=== PATIENT | female | born 2000 | race Caucasian/White ===

== ENCOUNTER 2024-09-05 19:28 | Emergency (ER) | payer OTHER, SELFPAY ==
[2024-09-05 19:29] VITALS: BP 112/50; PULSE 99; RESP 16; TEMP 36.8; O2SAT 97; BMI 23.1
--- NOTE | 2024-09-05 20:35 | EDS_ITS ---
HPI HPI - URI History of Present Illness Chief Complaint: Sore Throat Informant: patient Onset/Context/Timing Onset: Days Context: Gradual Onset Timing: Continuous Quality: Sharp Location: Throat and neck Worsened by: Swallowing and - (Talking) Relieved by: - (Nothing) Associated Symptoms Associated Symptoms: Positive for Nasal Congestion, Headache, Nausea, Vomiting, Shortness of Breath, Hemoptysis (Blood-streaked sputum) and Productive Cough; Negative for Sinus Pressure, Diarrhea or Chest Pain Narrative Narrative: Patient presents with sore throat that has been getting worse over the past few days. Patient describes the pain as sharp. Patient states it is worse with swallowing and talking. Patient states that it is mainly over the anterior neck. Patient admits to subjective fever at home. Patient states nothing seems to help with it. Patient admits to some nausea and vomiting. Patient also admits to a cough. Patient admits to headache and nasal congestion. ROS ROS ED Constitutional Constitutional ED: Reports fever(s) and subjective; Denies chills Eyes Eyes: Denies blurry vision or change in vision ENT ENT ED: Reports rhinorrhea and sore throat Cardiovascular Cardiovascular: Denies chest pain or palpitations Respiratory/Chest Respiratory/Chest: Reports cough and dyspnea Gastrointestinal Gastrointestinal: Reports nausea and vomiting Genitourinary Genitourinary ED: Denies dysuria or hematuria Musculoskeletal Musculoskeletal: Reports back pain and neck pain Integumentary Denies abscess or rash Neurologic Neurologic: Reports headache(s); Denies weakness Allergic/Immunologic Allergic/Immunologic ED: Denies mouth swelling or urticaria PFSH PFSH Medical History Asthma Home Medications ?Medication ?Instructions ?Recorded ?Last Taken ?Type penicillin V potassium 500 mg 500 mg PO 4X/DAY #40 tab s 09/05/24 Unknown Rx tablet Allergy/AdvReac Type Severity Reaction Status Date / Time trazodone AdvReac Other Verified 09/05/24 19:30 Surgical History H/O neck surgery Social History Smoking Status: Current every day smoker tobacco type: e-cigarettes EXAM Physical Exam Const Vital Signs: 09/05/24 19:29 Temperature 98.3 F Temperature Source Oral Pulse Rate 99 Respiratory Rate 16 Blood Pressure 112/50 L Blood Pressure Mean 70 Pulse Ox 97 Positive well nourished and well developed General Appearance ED: well developed and NAD HEENT Reports moist mucous membranes normocephalic and atraumatic Throat: posterior oropharynx abnormal Positive for erythema and exudates Neck supple, no meningeal signs and no JVD General: lymphadenopathy anterior cervical Resp normal respiratory effort and clear to auscultation bilaterally Cardio Rate: regular rate Rhythm: regular rhythm Neuro oriented x3, CN's II-XII intact bilaterally and no sensory deficits noted Sensorium / Orientation: alert Motor Exam: strength 5/5 throughout Psych mental status grossly normal MDM MDM MDM Narrative Medical decision making narrative: Differential diagnosis includes strep pharyngitis and viral pharyngitis. Rapid strep will be obtained to assess for strep pharyngitis. Lab Data Attestation: I reviewed the patient's lab results. Lab results narrative: Rapid strep was reviewed and was positive. Treatment and Re-Evaluation Narrative: Nicotine cessation was discussed. Patient was ordered a dose of Tylenol but she refuses. Patient was given a dose of Pen-Vee K here. Patient was given a prescription for Pen-Vee K. Patient was instructed to take Tylenol or ibuprofen as needed for any pain or fevers. Patient was instructed to follow-up with her primary care physician in 5 to 7 days. Patient was instructed to return if worse in any way. Patient understood and was agreeable with the plan. All questions were answered. Discharge Plan Triage Chief Complaint: Sore Throat ED Provider: Shar Ring Dx/Rx/DC Orders Clinical Impression: Strep pharyngitis, Nicotine vapor product user Instructions: ED Pharyngitis, Strep (Confirmed) Prescriptions: New penicillin V potassium 500 mg tablet 500 mg PO 4X/DAY Qty: 40 0RF Primary Care Provider: Care Physician,No Primary Referrals: [facility] Doctor,Out of [Non-Staff] - 5-7 Days Print Language: Lithuanian Disposition Disposition: Home, Self Care
--- NOTE | 2024-09-05 22:01 | ED.RN ---
Pt refuses Tylenol, states I'm not paying the hospital for fucking Tylenol, I have it in my car. Pt states Tylenol and Ibuprofen not helping when she took them at home. This RN stated MD wasn't ordering narcotics at this time. Pt became angry, states I'm not a fucking druggie. Pt further demanding labs results, this RN stated as soon as results were available from lab, MD would be in to give her results. Pt pulls privacy screen between this RN and her. Pt continues to curse, stating how long does it take for a fucking strep test to come back?.
[2024-09-05] MEDS: Penicillin Vk 250 MG Tablet 500 MG PO (22:24)
== END 2024-09-05 22:33 | disposition home or self-care (01) ==
PROVIDERS: Emergency Provider Emergency Medicine; Visit Provider Emergency Medicine
DX: J02.0 Streptococcal pharyngitis (principal); F17.290 Nicotine dependence, other tobacco product, uncomplicated
CPT/HCPCS: 87651; 99282

== ENCOUNTER 2025-01-13 04:02 | Emergency (ER) | payer OTHER, SELFPAY ==
[2025-01-13 04:03] VITALS: BP 123/78; PULSE 90; RESP 18; TEMP 36.8; O2SAT 99; BMI 24.1
--- OUTSIDE RECORDS SUMMARY | 2025-01-13 04:39 | XMS RPT_ITS | CCD ---
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 Name Role Phone JOEL MAJANO Primary Care Unavailable Shar Ring Attending Unavailable Allergies Allergy Classification Reported Allergen(s) Allergy Type Date of Onset Reaction(s) Facility (1 source) traZODone Drug Allergy 09-05-2024 [facility] Repository Problems Problem Classification Problem Date Documented Da te Episodic/Chronic Other upper respiratory infections (1 source) Acute pharyngitis, unspecified; Translations: [Acute pharyngitis, unspecified] Onset: 09-20-2024 Episodic Results Test Name Value Interpretation Reference Range Facil ity Emergency Department Summary on 09-05-2024 Emergency Department Summary [facility] Medical Records Department [address] [place] [address] Emergency Department Summary 09/05/24 MR#: [id number] Acct: [id number] Name: SIMONA STILL Rep #: [id number] : 2000 23 From: Shar Ring DO PCP: BOYD FLETCHER Status:DEP ER Location: ED HPI HPI - URI History of Present Illness Chief Complaint: Sore Throat Informant: patient Onset/Context/Timing Onset: Days Context: Gradual Onset Timing: Continuous Quality: Sharp Location: Throat and neck Worsened by: Swallowing and - (Talking) Relieved by: - (Nothing) Associated Symptoms Associated Symptoms: Positive for Nasal Congestion, Headache, Nausea, Vomiting, Shortness of Breath, Hemoptysis (Blood-streaked sputum) and Productive Cough; Negative for Sinus Pressure, Diarrhea or Chest Pain Narrative Narrative: Patient presents with sore throat that has been getting worse over the past few days. Patient describes the pain as sharp. Patient states it is worse with swallowing and talking. Patient states that it is mainly over the anterior neck. Patient admits to subjective fever at home. Patient states nothing seems to help with it. Patient admits to some nausea and vomiting. Patient also admits to a cough. Patient admits to headache and nasal congestion. ROS ROS ED Constitutional Constitutional ED: Reports fever(s) and subjective; Denies chills Eyes Eyes: Denies blurry vision or change in vision ENT ENT ED: Reports rhinorrhea and sore throat Cardiovascular Cardiovascular: Denies chest pain or palpitations Respiratory/Chest Respiratory/Chest: Reports cough and dyspnea Gastrointestinal Gastrointestinal: Reports nausea and vomiting Genitourinary Genitourinary ED: Denies dysuria or hematuria Musculoskeletal Musculoskeletal: Reports back pain and neck pain Integumentary Denies abscess or rash Neurologic Neurologic: Reports headache(s); Denies weakness Allergic/Immunologic Allergic/Immunologic ED: Denies mouth swelling or urticaria [facility] Medical History Asthma Home Medications ???Medication ???Instructions ???Recorded ???Last Taken ???Type penicillin V potassium 500 mg 500 mg PO 4X/DAY #40 tabs 09/05/24 Unknown Rx tablet Allergy/AdvReac Type Severity Reaction Status Date / Time trazodone AdvReac Other Verified 09/05/24 19:30 Surgical History H/O neck surgery Social History Smoking Status: Current every day smoker tobacco type: e-cigarettes EXAM Physical Exam Const Vital Signs: 09/05/24 19:29 Temperature 98.3 F Temperature Source Oral Pulse Rate 99 Respiratory Rate 16 Blood Pressure 112/50 L Blood Pressure Mean 70 Pulse Ox 97 Positive well nourished and well developed General Appearance ED: well developed and NAD HEENT Reports moist mucous membranes normocephalic and atraumatic Throat: posterior oropharynx abnormal Positive for erythema and exudates Neck supple, no meningeal signs and no JVD General: lymphadenopathy anterior cervical Resp normal respiratory effort and clear to auscultation bilaterally Cardio Rate: regular rate Rhythm: regular rhythm Neuro oriented x3, CN's II-XII intact bilaterally and no sensory deficits noted Sensorium / Orientation: alert Motor Exam: strength 5/5 throughout Psych mental status grossly normal MDM MDM MDM Narrative Medical decision making narrative: Differential diagnosis includes strep pharyngitis and viral pharyngitis. Rapid strep will be obtained to assess for strep pharyngitis. Lab Data Attestation: I reviewed the patient's lab results. Lab results narrative: Rapid strep was reviewed and was positive. Treatment and Re-Evaluation Narrative: Nicotine cessation was discussed. Patient was ordered a dose of Tylenol but she refuses. Patient was given a dose of Pen-Vee K here. Patient was given a prescription for Pen-Vee K. Patient was instructed to take Tylenol or ibuprofen as needed for any pain or fevers. Patient was instructed to follow-up with her primary care physician in 5 to 7 days. Patient was instructed to return if worse in any way. Patient understood and was agreeable with the plan. All questions were answered. Discharge Plan Triage Chief Complaint: Sore Throat ED Provider: Shar Ring Dx/Rx/DC Orders Clinical Impression: Strep pharyngitis, Nicotine vapor product user Instructions: ED Pharyngitis, Strep (Confirmed) Prescriptions: New penicillin V potassium 500 mg tablet 500 mg PO 4X/DAY Qty: 40 0RF Primary Care Provider: Care Physician,Stefany Primary Referrals: [facility] Doctor,Out of [Non-Staff] - 5-7 Days Print Language: Eng (more content not included)... Normal [facility] M100.677on 09-05-2024 M100.677 Positive Normal [facility] Comment on above: Performed By: #### M 100.677 #### [facility] [address] [place], [address] Encounters Encounter Date Encounter Type Care Provider Facility Start: 09-05-2024 End: 09-05-2024 Emergency department patient visit JOEL MAJANO Facility:[facility] Payers Date Payer Category Payer Self-pay 2024 Unknown [id number] Unknown [id number] Summary Purpose Family History No Family History Records Found Advance Directives No Advanced Directives Records Found Additional Source Comments INFORMATION SOURCE (unrecogn ized section and content) DATE CREATED AUTHOR 09/22/2024 [facility] FOR RECORDS PERTAINING TO PATIENTS WHO ARE OR HAVE BEEN ENROLLED IN A CHEMICAL DEPENDENCY/SUBSTANCEABUSE PROGRAM, SOME INFORMATION MAY BE OMITTED. This clinical summary was aggregated from multiple sources. Caution should be exercised in using it in the provision of clinical care. This summary normalizes information from multiple sources, and as a consequence, information in this document may materially change the coding, format and clinical context of patient data. In addition, data may be omitted in some cases. CLINICAL DECISIONS SHOULD BE BASED ON THE PRIMARY CLINICAL RECORDS. [employer] [facility]. provides no warranty or guarantee of the accuracy or completeness of information in this document.
--- NOTE | 2025-01-13 04:46 | EDS_ITS ---
HPI History of Present Illness Chief Complaint: Complaint Narrative Narrative: Patient is a 24-year-old female with past medical history of asthma who presented to the emergency department the chief complaint of urinating blood. She states that she went to the bathroom and notes that when she looked in the toilet there was a significant mount of blood she had some abdominal discomfort associated with this therefore she came here for further evaluation management. Patient notes that she is currently on a antibiotic for a tooth infection. Patient notes that there is a possibility of as she does not use condoms and she is not on control but she states that she feels that this is a low chance but still possibility. [facility] Medical History Asthma Home Medications ?Medication ?Instructions ?Recorded ?Last Taken ?Type phenazopyridine 100 mg tablet 100 mg PO DAILY 01/13/25 Unknown History Allergy/AdvReac Type Severity Reaction Status Date / Time trazodone AdvReac Other Verified 01/13/25 04:03 Surgical History H/O neck surgery Social History Smoking Status: Current every day smoker tobacco type: e-cigarettes ROS ROS ED ROS Narrative Constitutional: Denies any fevers, chills, headaches Eyes: Denies change in vision double vision blurry vision Cardiovascular: Denies chest pain Abdomen: Complains of lower abdominal pain denies any nausea vomit diarrhea : Complains of blood in her urine as noted above Neurological: Denies any numbness, aches, tingling Skin: Denies any rashes or lesions EXAM Physical Exam Narrative Exam Narrative: General: Patient lying in bed rest comfortably did not appear to be acute distress Head: Atraumatic, normocephalic Eyes: PERRL bilaterally, EOMI blood, no conjunctival injection noted Neck: Soft, supple, trachea midline Cardiovascular: Regular rate and rhythm Respiratory: Clear to auscultation bilaterally Abdomen: Soft, nondistended, mild tenderness palpation in the suprapubic region no rebound or guarding on exam Extremities: +5/5 strength noted in the bilateral upper and lower extremities Neurological: Patient follow commands knew that she was at [facility] year is 2024 Skin: Warm, dry, intact no rashes lesions noted Const Vital Signs: 01/13/25 04:03 01/13/25 06:00 Temperature 98.2 F Temperature Source Oral Pulse Rate 90 64 Respiratory Rate 18 16 Blood Pressure 123/78 H 105/63 Blood Pressure Mean 93 77 Pulse Ox 99 100 Oxygen Delivery Method Room Air Room Air MDM MDM MDM Narrative Medical decision making narrative: Patient is a 24-year-old female who presents to the emergency department chief complaint of hematuria. On the differential diagnosis includes but not limited to UTI, ectopic , threatened miscarriage, missed . Once workup is obtained reviewed she will be reevaluated. Patient CBC reviewed and showed no evidence of cytosis white blood count 8.1, hemoglobin 13.9, plate count 235. Patient sodium normal 139, potassium normal 3.8, creatinine was 0.55. Patient AST and ALT were 16 and less than 5 respectively. Patient lipase was 24, test was negative. Patient's urinalysis showed 250 occult blood negative nitrates 25 leukocyte esterase 0-5 white cells with 2+ bacteria she does not have any urinary symptoms at this point time we will send this for culture. I discussed the results with the patient she is feeling better she like to go home at this point in time. Patient was advised to follow-up and urine culture and follow-up with her doctor in the outpatient setting. She is advised to return with worsening symptoms or any concerns or the nearest ER as she travels for her job. She is agreeable with this plan all question concerns answered she was discharged home in stable condition. Lab Data Labs: Laboratory Results - last 24 hr 01/13/25 01/13/25 04:58 05:39 WBC 8.1 RBC 4.50 Hgb 13.9 Hct 41.0 MCV 91.1 MCH 30.9 MCHC 33.9 RDW Std Deviation 41.1 RDW Coeff of Rachelle 12.3 Plt Count 235 MPV 9.7 Immature Gran % (Auto) 0.200 Neut % (Auto) 65.6 Lymph % (Auto) 27.0 [place] % (Auto) 5.8 Eos % (Auto) 0.9 Baso % (Auto) 0.5 Absolute Neuts (auto) 5.3 Absolute Lymphs (auto) 2.19 Nucleated RBC % 0 Sodium 139 Potassium 3.8 Chloride 107 Carbon Dioxide 21.8 Anion Gap 10 BUN 12 Creatinine 0.55 L Estim Creat Clear Calc 115.24 Est GFR (MDRD) Non-Af 133 BUN/Creatinine Ratio 21.2 H Glucose 107 H Calcium 8.8 Total Bilirubin 0.70 AST 16 ALT < 5 Alkaline Phosphatase 50 Total Protein 6.7 Albumin 4.2 Globulin 2.5 Albumin/Globulin Ratio 1.7 Lipase 24 Serum , Qual NEGATIVE Urine Color Yellow Urine Clarity Clear Urine pH 6.0 Ur Specific [place] 1.025 Urine Protein 15 H Urine Glucose (UA) Normal Urine Ketones 15 H Urine Occult Blood 250 H Urine Nitrite Negative Urine Bilirubin Negative Urine Urobilinogen Normal Ur Leukocyte Esterase 25 H Urine RBC 0-5 SEEN Urine WBC 0-5 SEEN Ur Squamous Epith Cells 0-5 SEEN Ur Transition Epith Cell 0-5 SEEN Urine Bacteria 2+ Urine Mucus 2+ Discharge Plan Triage Chief Complaint: Complaint ED Provider: Carl Diop Dx/Rx/DC Orders Clinical Impression: Hematuria, Abdominal pain Prescriptions: No Action phenazopyridine 100 mg tablet 100 mg PO DAILY Primary Care Provider: Care Physician,No Primary Referrals: Care Physician,No Primary [Primary Care Provider] - Activity Restrictions/Additional Instructions: Follow-up on the urine culture to see if you need antibiotics for your urine or not for urinary tract infection. [facility] Return with worsening symptoms or other concerns or if you are not in the area and you have worsening symptoms go to the closest ER. Print Language: Turkish Disposition Disposition: Home, Self Care
[2025-01-13] MEDS: 0.9% Normal Saline (1000mL) 1,000 ML 999 ML IV (05:00)
[2025-01-13 05:09] LABS: Hematocrit 41.0 % (37-47); Hemoglobin 13.9 g/dL (12.0-15.0); Immature Granulocytes Count 0.020 X10^3/uL (0.0-0.0); Mean Corp Hgb Conc 33.9 g/dL (32-36); Mean Corpuscular Volume 91.1 fL (81-99); Mean Platelet Vol. 9.7 fl (6.2-12.0); NRBC Flagged by Analyzer 0 % (0-5); Platelet Count 235 K/mm3 (150-450); RBC Distribution Width CV 12.3 % (11.6-14.6); RBC Distribution Width SD 41.1 fl (35.1-43.9); Red Blood Count 4.50 M/mm3 (4.2-5.4); White Blood Count 8.1 K/mm3 (4.4-11.0)
[2025-01-13 05:25] LABS: Internal QC Validated? YES +Cl - CLEAR BKGD; Pregnancy, Serum, hCG Quali. NEGATIVE Negative; Record Kit Lot#, Serum Preg. 0000947241
[2025-01-13 05:47] LABS: Color, Urine Yellow (Yellow); Glucose, Dipstick Normal (Normal); Ketone-Dipstick 15 mg/dl (Negative); Leukocyte Esterase-Dipstick 25 /ul (Negative); Nitrite-Dipstick Negative (Negative); Occult Blood-Urine 250 /ul (Negative); Protein-Dipstick 15 mg/dl (Negative); Specific Gravity, Urine 1.025 (1.002-1.030); Urine Bilirubin Dipstick Negative (Negative)
[2025-01-13 06:00] VITALS: BP 105/63; PULSE 64; RESP 16; O2SAT 100
[2025-01-13 06:02] LABS: AST(SGOT) 16 U/L (<=31); Alanine Aminotransfer ALT/SGPT < 5 U/L (<=34); Albumin, Serum 4.2 g/dL (3.5-5.0); Alkaline Phosphatase 50 U/L (35-104); Anion Gap 10 (5-15); BUN 12 mg/dL (4-19); BUN/Creat Ratio 21.2 RATIO (10-20); Calcium,Total 8.8 mg/dL (7.6-11.0); Carbon Dioxide 21.8 mmol/L (21.0-32.0); Chloride 107 mmol/L (98-108); Estimated Creatinine Clearance 115.24 ml/min (50-250); Globulin 2.5 g/dL (2.2-4.2); Glucose 107 mg/dL (70-99); Lipase 24 U/L (13-75); Potassium 3.8 mmol/L (3.3-5.1)
[2025-01-13 06:09] LABS: Mucous, Urine 2+ /hpf (<or=2+); Red Blood Cells-Urine 0-5 SEEN /hpf (0-5); Squamous Epithelial Cells - UA 0-5 SEEN /hpf (5-10); Transitional Epithelial - Ur 0-5 SEEN /hpf (0-5)
[2025-01-13 06:34] VITALS: BP 101/70; PULSE 65; RESP 18; TEMP 36.8; O2SAT 98
== END 2025-01-13 06:38 | disposition home or self-care (01) ==
PROVIDERS: Emergency Provider Emergency Medicine; Visit Provider Emergency Medicine
DX: R10.30 Lower abdominal pain, unspecified (principal); R31.9 Hematuria, unspecified; J45.909 Unspecified asthma, uncomplicated; K04.7 Periapical abscess without sinus; F17.290 Nicotine dependence, other tobacco product, uncomplicated
CPT/HCPCS: 80053; 81001; 83690; 84703; 85025; 87086; 96360; 99283; A4216

== ENCOUNTER 2025-02-03 19:08 | Emergency (ER) | payer OTHER, SELFPAY ==
[2025-02-03 19:10] VITALS: BP 101/82; PULSE 88; RESP 18; TEMP 36.7; O2SAT 98; BMI 22.8
--- NOTE | 2025-02-03 19:28 | EDS_ITS ---
HPI <GRACIA Cardenas - Last Filed: 02/03/25 21:24> History of Present Illness Chief Complaint: Abscess Narrative Narrative: Patient presenting today due to concerns for a left labial abscess that she discovered today while in the shower. She did try to express this herself and squeezed the abscess causing it to pop, she did have purulent discharge expelled from the area. She reports that she was recently tested for STDs and does not have further STD concerns. She denies any fevers, chills, nausea, or vomiting. PFSH <GRACIA Cardenas - Last Filed: 02/03/25 21:24> [facility] Medical History Asthma Home Medications ?Medication ?Instructions ?Recorded ?Last Taken ?Type phenazopyridine 100 mg tablet 100 mg PO DAILY 01/13/25 Unknown History Allergy/AdvReac Type Severity Reaction Status Date / Time trazodone AdvReac Other Verified 02/03/25 19:13 Surgical History H/O neck surgery Social History Smoking Status: Current every day smoker tobacco type: e-cigarettes ROS <GRACIA Cardenas - Last Filed: 02/03/25 21:24> ROS ED Constitutional Constitutional ED: Denies chills or fever(s) Cardiovascular Cardiovascular: Denies chest pain Respiratory/Chest Respiratory/Chest: Denies dyspnea Gastrointestinal Gastrointestinal: Denies abdominal pain, nausea or vomiting Genitourinary Genitourinary ED: Denies dysuria, hematuria or urinary frequency Musculoskeletal Musculoskeletal: Denies arthralgias or myalgias Integumentary Reports abscess Neurologic Neurologic: Denies weakness EXAM <GRACIA Cardenas Last Filed: 02/03/25 21:24> Physical Exam Const Vital Signs: 02/03/25 19:10 02/03/25 20:24 Temperature 98.0 F 98 F Temperature Source Temporal Pulse Rate 88 71 Respiratory Rate 18 14 Blood Pressure 101/82 H 112/84 H Blood Pressure Mean 88 93 Pulse Ox 98 97 Oxygen Delivery Method Room Air Positive well nourished, well developed and no apparent distress General Appearance ED: well developed HEENT Reports normocephalic and head/scalp atraumatic Mouth ED: Yes moist mucous membranes normal Eyes PERRL and EOMs intact bilaterally Neck full ROM and supple Chest Wall inspection of chest normal Resp normal respiratory effort and clear to auscultation bilaterally Cardio regular rate and regular rhythm GI soft to palpation, non-tender, non-distended and no masses Narrative: Small fluctuant abscess to the left side of the vaginal opening, no surrounding erythema, warmth, or active purulence from the area. Back/Spine normal ROM and normal to inspection Extremity normal to inspection and full ROM Neuro oriented x3, CN's II-XII intact bilaterally, moves all extremities, no focal motor deficits and no sensory deficits noted Sensorium / Orientation: awake and alert Psych mental status grossly normal and thought process normal Skin no rashes or lesions noted and no wounds <Dr. Alejandro Donis MD - Last Filed: 02/05/25 22:48> Physical Exam Const Vital Signs: 02/03/25 19:10 02/03/25 20:24 Temperature 98.0 F 98 F Temperature Source Temporal Pulse Rate 88 71 Respiratory Rate 18 14 Blood Pressure 101/82 H 112/84 H Blood Pressure Mean 88 93 Pulse Ox 98 97 Oxygen Delivery Method Room Air MDM <GRACIA Cardenas - Last Filed: 02/03/25 21:24> [facility] MDM Narrative Medical decision making narrative: Patient presenting today with a small abscess to the inferior and left side of the vaginal opening, she pushed on the area while in the shower and pus came out of it. She denies any STD concerns. 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 There is no surrounding cellulitis. She has a small fluctuant abscess to the area and she is agreeable to I&D this. It was cleaned with iodine and anesthetized with 1% lidocaine, a small incision was made with a #11 blade and a small amount of blood was expelled. Recommended warm compresses to the area, at this time I do not feel she needs antibiotics. Wound care instructions were discussed with her as well as return instructions. Patient discharged home in stable condition. I have personally performed a face to face assessment of the patient and have reviewed the GIGI Note. I performed a substantive portion of the visit including all aspects of the following. My mayes findings include: History is patient presents because of pain and swelling inferior and to the left of the vaginal opening. She states she pushed on it forcefully and pus and blood came out. She has no history of STI. She denies fever, chills night sweats. She denies a traumatic fever or heart murmur.] Exam is for fluctuance consistent with an abscess subcutaneous tissue on the left perineal region. There is no evidence of cellulitis. There is no tabatha lymphadenopathy. There are no lesions noted on the labia. Medical Decision Making patient has an abscess which required drainage. The abscess was drained by the physician field research assistantFelicita. Other additions or changes: [None] <Dr. Alejandro Donis MD - Last Filed: 02/05/25 22:48> [facility] MDM Narrative Medical decision making narrative: I have personally performed a face to face assessment of the patient and have reviewed the GIGI Note. I performed a substantive portion of the visit including all aspects of the following. My mayes findings include: History is patient presents because of pain and swelling inferior and to the left of the vaginal opening. She states she pushed on it forcefully and pus and blood came out. She has no history of STI. She denies fever, chills night sweats. She denies a traumatic fever or heart murmur.] Exam is for fluctuance consistent with an abscess subcutaneous tissue on the left perineal region. There is no evidence of cellulitis. There is no tabatha ly mphadenopathy. There are no lesions noted on the labia. Medical Decision Making patient has an abscess which required drainage. The abscess was drained by the physician field research assistantFelicita. Other additions or changes: [None] Discharge Plan Triage Chief Complaint: Abscess ED Midlevel Provider: Brittany Hernandez ED Provider: Alejandro Donis Dx/Rx/DC Orders Clinical Impression: Abscess of left genital labia Instructions: ED Abscess Incision And Drainage Prescriptions: No Action phenazopyridine 100 mg tablet 100 mg PO DAILY Primary Care Provider: BOYD FLETCHER Referrals: Care Physician,No Primary [Non-Staff] - Activity Restrictions/Additional Instructions: Please return for any other concerns, worsening symptoms, fevers, chills. Try to keep the area clean and dry. Print Language: Upper Sorbian Disposition Disposition: Home, Self Care Discharge Date/Time: 02/03/25 20:29
--- OUTSIDE RECORDS SUMMARY | 2025-02-03 19:38 | XMS RPT_ITS | CCD ---
Author Organization [facility] Care Team Providers Care Physical Design Engineer Name Role Phone Care Physician, No Primary Primary Care Provider Unavailable Dr. Carl Diop DO Emergency Provider [phone] [place] Attending Unavailable AGUSTINA GONZALES Primary Care Unavailable Carl Diop Attending Unavailable Care Physician, No Primary Primary Care Unava ilable Allergies Allergy Classification Reported Allergen(s) Allergy Type Date of Onset Reaction(s) Facility (1 source) traZODone Drug Allergy 5 Other [facility] Comment on above: HALLUCINATIONS (1 source) traZODone Drug Allergy 5 [facility] Repository Medications Current Medications Medication Drug Class(es) Dates Sig (Normalized) Sig (Original) phenazopyridine hydrochloride 100 mg oral tablet (1 source) Start: 01-13-2025 take 1 tablet by mouth once daily Phenazopyridine 100 mg tablet Active 100 mg PO DAILY January 13, 2025 12:00am Completed/Discontinued Medications Medication Drug Class(es) Dates Sig (Normalized) Sig (Original) penicillin v potassium 500 mg oral tablet (1 source) Start: 09-05-2024 End: 01-13-2025 take 1 tablet by mouth four times daily Penicillin V Potassium 500 mg tablet Discontinued 500 mg PO 4 TIMES DAILY 40 0 September 05, 2024 1:00am January 13, 2025 6:26am Problems Active Problems Problem Classification Problem Date Documented Da te Episodic/Chronic Abdominal pain (2 sources) Abdominal pain; Translations: [Unspecified abdominal pain] Onset: 01-19-2025 01-13-2025 Episodic Genitourinary symptoms and ill-defined conditions (1 source) Blood in urine; Translations: [Hematuria, unspecified] 01-13-2025 Episodic Residual codes; unclassified (1 source) Nicotine-filled electronic cigarette user; Translations: [Tobacco use] 09-05-2024 Episodic Past or Other Problems Problem Classification Problem Date Documented Date Episodic/Chronic Other upper respiratory infections (2 sources) Streptococcal sore throat; Translations: [Streptococcal pharyngitis] Onset: 09-20-2024 09-13-2024 Episodic Results Test Name Value Interpretation Reference Range Facility Urine Cultureon 01-14-2025 URC Culture exhibits no growth. Normal [facility] Comment on above: Performed By: #### M 100.2200 #### [facility] [address] [place], [address] Absolute lymphocyte countOrd ered By: Carlnehemiah Diop on 01-13-2025 Lymphocytes Auto (Unsp spec) [#/Vol] 2.19 10*3/uL 0.83-4.51 [facility] Absolute neutrophil countOrd ered By: Carlnehemiah Diop on 01-13-2025 Neutrophils (Bld) [#/Vol] 5.3 10*3/uL 2.0-7.7 [facility] Anion gap in Serum or Plasma Ordered By: Carl Diop on 01-13-2025 Anion gap [Moles/Vol] 10 mmol/L 5-15 [facility] Automated lymphocyte count a s percentage of total leukocytesOrdered By: Carl Diop on 01-13-2025 Lymphocytes/100 WBC Auto (Unsp spec) 27.0 % 19-41 [facility] BUN/creatinine ratioOrdered By: Carl Diop on 01-13-2025 Urea nitrogen/Creatinine [Mass ratio] 21.2 mg/mg High 10-20 [facility] Basophil percentageOrdered B y: Carl Diop on 01-13-2025 Basophils/100 WBC (Bld) 0.5 % 0-1 [facility] Bilirubin Test strip Ql (U)O rdered By: Carl Diop on 01-13-2025 Bilirubin Ql (U) Negative Negative [facility] Bilirubin, totalOrdered By: Carl Diop on 01-13-2025 Bilirubin [Mass/Vol] 0.70 mg/dL 0.00-1.30 [facility] CBC W/Diff, Automatedon 01-02 Absolute Lymph 2.19 X10 3/uL Normal 0.83-4.51 [facility] Comment on above: Performed By: #### L 700.6800, L501.2450, L500.4050, L100.0100 #### [facility] [address] [place], [address] Absolute Neut 5.3 X10 3/uL Normal 2.0-7.7 [facility] Comment on above: Performed By: #### L 700.6800, L501.2450, L500.4050, L100.0100 #### [facility] [address] [place], [address] Basophils/100 WBC (Bld) 0.5 % Normal 0-1 [facility] Comment on above: Performed By: #### L 700.6800, L501.2450, L500.4050, L100.0100 #### [facility] [address] [place], [address] Eosinophils/100 WBC (Bld) 0.9 % Normal 0-5 [facility] Comment on above: Performed By: #### L 700.6800, L501.2450, L500.4050, L100.0100 #### [facility] [address] [place], [address] Erythrocyte distribution width (RBC) [Ratio] 12.3 % Normal 11.6-14.6 [facility] Comment on above: Performed By: #### L 700.6800, L501.2450, L500.4050, L100.0100 #### [facility] [address] [place], [address] Hematocrit (Bld) [Volume fraction] 41.0 % Normal 37-47 [facility] Comment on above: Performed By: #### L 700.6800, L501.2450, L500.4050, L100.0100 #### [facility] [address] [place], [address] Hemoglobin (Bld) [Mass/Vol] 13.9 g/dL Normal 12.0-15.0 [facility] Comment on above: Performed By: #### L 700.6800, L501.2450, L500.4050, L100.0100 #### [facility] [address] [place], [address] IG% 0.200 Normal 0.0-0.9 [facility] Comment on above: Result Comment: IG% - Immature Granulocytes (promyelocytes, myelocytes and metamyelocytes) > 1% indicates that a LEFT SHIFT is Present. Performed By: #### L 700.6800, L501.2450, L500.4050, L100.0100 #### [facility] [address] [place], [address] Lymphocytes/100 WBC (Bld) 27.0 % Normal 19-41 [facility] Comment on above: Performed By: #### L 700.6800, L501.2450, L500.4050, L100.0100 #### [facility] [address] [place], [address] MCH (RBC) [Entitic mass] 30.9 pg Normal 27.0-32.0 [facility] Comment on above: Performed By: #### L 700.6800, L501.2450, L500.4050, L100.0100 #### [facility] [address] [place], [address] MCHC (RBC) [Mass/Vol] 33.9 g/dL Normal 32-36 [facility] Comment on above: Performed By: #### L 700.6800, L501.2450, L500.4050, L100.0100 #### [facility] [address] [place], [address] MCV (RBC) [Entitic vol] 91.1 fL Normal 81-99 [facility] Comment on above: Performed By: #### L 700.6800, L501.2450, L500.4050, L100.0100 #### [facility] [address] [place], [address] Monocytes/100 WBC (Bld) 5.8 % Normal 0-10 [facility] Comment on above: Performed By: #### L 700.6800, L501.2450, L500.4050, L100.0100 #### [facility] [address] [place], [address] Neutrophils/100 WBC (Bld) 65.6 % Normal 47-70 [facility] Comment on above: Performed By: #### L 700.6800, L501.2450, L500.4050, L100.0100 #### [facility] [address] [place], [address] Nucleated RBC (Bld) [#/Vol] 0 10*3/uL Normal 0-5 [facility] Comment on above: Performed By: #### L 700.6800, L501.2450, L500.4050, L100.0100 #### [facility] [address] [place], [address] Platelet mean volume (Bld) [Entitic vol] 9.7 fL Normal 6.2-12.0 [facility] Comment on above: Performed By: #### L 700.6800, L501.2450, L500.4050, L100.0100 #### [facility] [address] [place], [address] Platelets (Bld) [#/Vol] 235 10*3/uL Normal 150-450 [facility] Comment on above: Performed By: #### L 700.6800, L501.2450, L500.4050, L100.0100 #### [facility] [address] [place], [address] RBC (Bld) [#/Vol] 4.50 10*6/uL Normal 4.2-5.4 [facility] Comment on above: Performed By: #### L 700.6800, L501.2450, L500.4050, L100.0100 #### [facility] [address] [place], [address] RDW SD 41.1 fl Normal 35.1-43.9 [facility] Comment on above: Performed By: #### L 700.6800, L501.2450, L500.4050, L100.0100 #### [facility] [address] [place], [address] WBC (Bld) [#/Vol] 8.1 10*3/uL Normal 4.4-11.0 [facility] Comment on above: Performed By: #### L 700.6800, L501.2450, L500.4050, L100.0100 #### [facility] [address] [place], [address] Carbon dioxide, total [Moles /volume] in Central venous bloodOrdered By: Carl Diop on 01-13-2025 CO2 [Moles/Vol] 21.8 mmol/L 21.0-32.0 [facility] Chloride assayOrdered By: Vern Diop on 01-13-2025 Chloride [Moles/Vol] 107 mmol/L 98-108 [facility] Comprehensive Metabolic Prof ilon 01-13-2025 Albumin [Mass/Vol] 4.2 g/dL Normal 3.5-5.0 [facility] Comment on above: Performed By: #### L 700.6800, L501.2450, L500.4050, L100.0100 #### [facility] [address] [place], [address] Albumin/Globulin [Mass ratio] 1.7 {ratio} Normal 0.9-2.4 [facility] Comment on above: Performed By: #### L 700.6800, L501.2450, L500.4050, L100.0100 #### [facility] [address] [place], [address] ALK PHOS 50 U/L Normal 35-104 [facility] Comment on above: Performed By: #### L 700.6800, L501.2450, L500.4050, L100.0100 #### [facility] [address] [place], [address] ALT [Catalytic activity/Vol] U/L Normal <=34 [facility] Comment on above: Performed By: #### L 700.6800, L501.2450, L500.4050, L100.0100 #### [facility] [address] [place], [address] AST [Catalytic activity/Vol] 16 U/L Normal <=31 [facility] Comment on above: Performed By: #### L 700.6800, L501.2450, L500.4050, L100.0100 #### [facility] [address] [place], [address] Bilirubin [Mass/Vol] 0.70 mg/dL Normal 0.00-1.30 [facility] Comment on above: Performed By: #### L 700.6800, L501.2450, L500.4050, L100.0100 #### [facility] [address] [place], [address] BUN/CRE 21.2 RATIO High 10-20 [facility] Comment on above: Performed By: #### L 700.6800, L501.2450, L500.4050, L100.0100 #### [facility] [address] [place], [address] Calcium [Mass/Vol] 8.8 mg/dL Normal 7.6-11.0 [facility] Comment on above: Performed By: #### L 700.6800, L501.2450, L500.4050, L100.0100 #### [facility] [address] [place], [address] Chloride [Moles/Vol] 107 mmol/L Normal 98-108 [facility] Comment on above: Performed By: #### L 700.6800, L501.2450, L500.4050, L100.0100 #### [facility] [address] [place], [address] CO2 [Moles/Vol] 21.8 mmol/L Normal 21.0-32.0 [facility] Comment on above: Performed By: #### L 700.6800, L501.2450, L500.4050, L100.0100 #### [facility] [address] [place], [address] Creatinine [Mass/Vol] 0.55 mg/dL Low 0.70-1.20 [facility] Comment on above: Performed By: #### L 700.6800, L501.2450, L500.4050, L100.0100 #### [facility] [address] [place], [address] ECRCL 115.24 ml/min Normal 50-250 [facility] Comment on above: Performed By: #### L 700.6800, L501.2450, L500.4050, L100.0100 #### [facility] [address] [place], [address] GAP 10 Normal 5-15 [facility] Comment on above: Performed By: #### L 700.6800, L501.2450, L500.4050, L100.0100 #### [facility] [address] [place], [address] GFR/1.73 sq M.predicted among non-blacks MDRD (S/P/Bld) [Vol rate/Area] 133 mL/min/{1.73_m2} Normal >60 [facility] Comment on above: Result Comment: mL/m in/1.73m2 CKD-EPI Creatinine Equation (2020) Performed By: #### L 700.6800, L501.2450, L500.4050, L100.0100 #### [facility] [address] [place], [address] Globulin (S) [Mass/Vol] 2.5 g/dL Normal 2.2-4.2 [facility] Comment on above: Performed By: #### L 700.6800, L501.2450, L500.4050, L100.0100 #### [facility] [address] [place], [address] Glucose [Mass/Vol] 107 mg/dL High 70-99 [facility] Comment on above: Performed By: #### L 700.6800, L501.2450, L500.4050, L100.0100 #### [facility] [address] [place], [address] Potassium [Moles/Vol] 3.8 mmol/L Normal 3.3-5.1 [facility] Comment on above: Result Comment: Hemo lysis present, Results??could be affected. ?? Performed By: #### L 700.6800, L501.2450, L500.4050, L100.0100 #### [facility] [address] [place], [address] Sodium [Moles/Vol] 139 mmol/L Normal 133-145 [facility] Comment on above: Performed By: #### L 700.6800, L501.2450, L500.4050, L100.0100 #### [facility] [address] [place], [address] T PROT 6.7 g/dL Normal 5.9-8.4 [facility] Comment on above: Performed By: #### L 700.6800, L501.2450, L500.4050, L100.0100 #### [facility] [address] [place], [address] Urea nitrogen [Mass/Vol] 12 mg/dL Normal 4-19 [facility] Comment on above: Performed By: #### L 700.6800, L501.2450, L500.4050, L100.0100 #### [facility] [address] [place], [address] Emergency Department Summary on 01-13-2025 Emergency Department Summary [facility] Medical Records Department [address] [place] [address] Emergency Department Summary 01/13/25 MR#: [id number] Acct: [id number] Name: SIMONA STILL Rep #: [id number] : 2000 24 From: Carl Diop DO PCP: Care Physician,No Primary Status:REG ER Location: ED HPI History of Present Illness Chief Complaint: Complaint Narrative Narrative: Patient is a 24-year-old female with past medical history of asthma who presented to the emergency department the chief complaint of urinating blood. She states that she went to the bathroom and notes that when she looked in the toilet there was a significant mount of blood she had some abdominal discomfort associated with this therefore she came here for further evaluation management. Patient notes that she is currently on a antibiotic for a tooth infection. Patient notes that there is a possibility of as she does not use condoms and she is not on control but she states that she feels that this is a low chance but still possibility. [facility] Medical History Asthma Home Medications ???Medication ???Instructions ???Recorded ???Last Taken ???Type phenazopyridine 100 mg tablet 100 mg PO DAILY 01/13/25 Unknown H istory Allergy/AdvReac Type Severity Reaction Status Date / Time trazodone AdvReac Other Verified 01/13/25 04:03 Surgical History H/O neck surgery Social History Smoking Status: Current every day smoker tobacco type: e-cigarettes ROS ROS ED ROS Narrative Constitutional: Denies any fevers, chills, headaches Eyes: Denies change in vision double vision blurry vision Cardiovascular: Denies chest pain Abdomen: Complains of lower abdominal pain denies any nausea vomit diarrhea : Complains of blood in her urine as noted above Neurological: Denies any numbness, aches, tingling Skin: Denies any rashes or lesions EXAM Physical Exam Narrative Exam Narrative: General: Patient lying in bed rest comfortably did not appear to be acute distress Head: Atraumatic, normocephalic Eyes: PERRL bilaterally, EOMI blood, no conjunctival injection noted Neck: Soft, supple, trachea midline Cardiovascular: Regular rate and rhythm Respiratory: Clear to auscultation bilaterally Abdomen: Soft, nondistended, mild tenderness palpation in the suprapubic region no rebound or guarding on exam Extremities: +5/5 strength noted in the bilateral upper and lower extremities Neurological: Patient follow commands knew that she was at [facility] year is 2024 Skin: Warm, dry, intact no rashes lesions noted Const Vital Signs: 01/13/25 04:03 01/13/25 06:00 Temperature 98.2 F Temperature Source Oral Pulse Rate 90 64 Respiratory Rate 18 16 Blood Pressure 123/78 H 105/63 Blood Pressure Mean 93 77 Pulse Ox 99 100 Oxygen Delivery Method Room Air Room Air MDM MDM MDM Narrative Medical decision making narrative: Patient is a 24-year-old female who presents to the emergency department chief complaint of hematuria. On the differential diagnosis includes but not limited to UTI, ectopic , threatened miscarriage, missed . Once workup is obtained reviewed she will be reevaluated. Patient CBC reviewed and showed no evidence of cytosis white blood count 8.1, hemoglobin 13.9, plate count 235. Patient sodium normal 139, potassium normal 3.8, creatinine was 0.55. Patient AST and ALT were 16 and less than 5 respectively. Patient lipase was 24, test was negative. Patient's urinalysis showed 250 occult blood negative nitrates 25 leukocyte esterase 0-5 white cells with 2+ bacteria she does not have any urinary symptoms at this point time we will send this for culture. I discussed the results with the patient she is feeling better she like to go home at this point in time. Patient was advised to follow-up and urine culture and follow-up with her doctor in the outpatient setting. She is advised to return with worsening symptoms or any concerns or the nearest ER as she travels for her job. She is agreeable with this plan all question concerns answered she was discharged home in stable condition. Lab Data Labs: Laboratory Results - last 24 hr 01/13/25 01/13/25 04:58 05:39 WBC 8.1 RBC 4.50 Hgb 13.9 Hct 41.0 MCV 91.1 MCH 30.9 MCHC 33.9 RDW Std Deviation 41.1 RDW Coeff of Rachelle 12.3 Plt Count 235 MPV 9.7 Immature Gran % (Auto) 0.200 Neut % (Auto) 65.6 Lymph % (Auto) 27.0 [place] % (Auto) 5.8 Eos % (Auto) 0.9 Baso % (Auto) 0.5 Absolute Neuts (auto) 5.3 Absolute Lymphs (auto) 2.19 Nucleated RBC % 0 So (more content not included)... Normal [facility] Eosinophil percentageOrdered By: Carl Diop on 01-13-2025 Eosinophils/100 WBC (Bld) 0.9 % 0-5 [facility] Erythrocyte distribution wid th ratioOrdered By: Carl Diop on 01-13-2025 Erythrocyte distribution width (RBC) [Ratio] 12.3 % 11.6-14.6 [facility] Erythrocyte distribution wid th standard deviationOrdered By: Carl Diop on 01-13-2025 Erythrocyte distribution width (RBC) [Ratio] 41.1 fl 35.1-43.9 [facility] Glomerular filtration rate ( GFR) estimation/1.73 sq m using serum, plasma, or whole bOrdered By: Carl Diop on 01-13-2025 GFR/1.73 sq M.predicted among non-blacks MDRD (S/P/Bld) [Vol rate/Area] 133 mL/min/{1.73_m2} >60 [facility] Comment on above: mL/min/1.73m2 CKD-EP I Creatinine Equation (2020) Hematocrit Auto (Bld) [Volum e fraction]Ordered By: Carl Diop on 01-13-2025 Hematocrit (Bld) [Volume fraction] 41.0 % 37-47 [facility] Hemoglobin measurementOrdere d By: Carl Diop on 01-13-2025 Hemoglobin (Bld) [Mass/Vol] 13.9 g/dL 12.0-15.0 [facility] Immature granulocytes/100 WB C Auto (Bld)Ordered By: Carl Diop on 01-13-2025 Immature granulocytes/100 WBC (Bld) 0.200 % 0.0-0.9 [facility] Comment on above: IG% - Immature Granu locytes (promyelocytes, myelocytes and metamyelocytes) > 1% indicates that a LEFT SHIFT is Present. Ketones Test strip Ql (U)Ord ered By: Carl Diop on 01-13-2025 Ketones Ql (U) 15 mg/dl High Negative [facility] - Chemistry and C hemistry - challengeOrdered By: Carl Diop on 01-13-2025 AST [Catalytic activity/Vol] 16 U/L <32 [facility] Lipaseon 01-13-2025 Lipase [Catalytic activity/Vol] 24 U/L Normal 13-75 [facility] Comment on above: Result Comment: Plea note: LIPASE revised reference range effective 22. New Lipase methodology. Expected to produce lower values than the previous assay method. NEW Reference Range: 13 - 75 U/L Performed By: #### L 700.6800, L501.2450, L500.4050, L100.0100 #### [facility] [address] [place], [address] Lipase measurementOrdered By : Carl Diop on 01-13-2025 Lipase [Catalytic activity/Vol] 24 U/L 13-75 [facility] Comment on above: Please note:LIPASE r evised reference range effective 22. New Lipase methodology. Expected to produce lower values than the previous assay method. NEW Reference Range: 13 - 75 U/L MCV (mean corpuscular volume ) determinationOrdered By: Carl Diop on 01-13-2025 MCV (RBC) [Entitic vol] 91.1 fL 81-99 [facility] Mean corpuscular hemoglobin (MCH) determinationOrdered By: Carl Diop on 01-13-2025 MCH (RBC) [Entitic mass] 30.9 pg 27.0-32.0 [facility] Mean corpuscular hemoglobin concentration (MCHC) determinationOrdered By: Carl Diop on 01-13-2025 MCHC (RBC) [Mass/Vol] 33.9 g/dL 32-36 [facility] Mean platelet volume determi nationOrdered By: Carl Diop on 01-13-2025 Platelet mean volume (Bld) [Entitic vol] 9.7 fL 6.2-12.0 [facility] Microscopic analysis of urin e for red blood cells (RBC)Ordered By: Carl Diop on 01-13-2025 Microscopic analysis of urine for red blood cells (RBC) 0-5 SEEN /hpf 0-5 [facility] Monocyte percentageOrdered B y: Carl Diop on 01-13-2025 Monocytes/100 WBC (Bld) 5.8 % 0-10 [facility] Mucus LM Ql (Urine sed)Order ed By: Carl Diop on 01-13-2025 Mucus Ql (Urine sed) 2+ /hpf [facility] Neutrophil percentageOrdered By: Carl Diop on 01-13-2025 Neutrophils/100 WBC (Bld) 65.6 % 47-70 [facility] Nitrite Test strip Ql (U)Ord ered By: Carl Diop on 01-13-2025 Nitrite Ql (U) Negative Negative [facility] Nucleated red blood cell per centageOrdered By: Carl Diop on 01-13-2025 Nucleated RBC/100 WBC (Bld) [Ratio] 0 % 0-5 [facility] Platelet countOrdered By: Vern Diop on 01-13-2025 Platelets (Bld) [#/Vol] 235 10*3/uL 150-450 [facility] Potassium measurement (mass/ volume)Ordered By: Carl Diop on 01-13-2025 Potassium (Unsp spec) [Mass/Vol] 3.8 mmol/L 3.3-5.1 [facility] Comment on above: Hemolysis present, R esults could be affected. ,Serum,hCG Quali.on 01-13-2025 HCG, SERUM QUAL Negative Normal [facility] Comment on above: Performed By: #### L 700.6800, L501.2450, L500.4050, L100.0100 #### [facility] [place], [address] Protein Test strip Ql (U)Ord ered By: Carl Diop on 01-13-2025 Protein Ql (U) 15 mg/dl High Negative [facility] RBC Auto (Bld) [#/Vol]Ordere d By: Carl Diop on 01-13-2025 RBC (Bld) [#/Vol] 4.50 10*6/uL 4.2-5.4 [facility] Serum beta-hCG test, qualita tiveOrdered By: Carl Diop on 01-13-2025 Beta HCG ( test) Ql Negative [facility] Serum creatinine measurement (mass/volume)Ordered By: Carl Diop on 01-13-2025 Creatinine [Mass/Vol] 0.55 mg/dL Low 0.70-1.20 [facility] Serum globulin measurementOr dered By: Carl Diop on 01-13-2025 Globulin (S) [Mass/Vol] 2.5 g/dL 2.2-4.2 [facility] Serum glucose measurement (m ass/volume)Ordered By: Carl Diop on 01-13-2025 Glucose [Mass/Vol] 107 mg/dL High 70-99 [facility] Serum or plasma alanine bucio otransferase (ALT) measurementOrdered By: Carl Diop on 01-13-2025 ALT [Catalytic activity/Vol] U/L <35 [facility] Serum or plasma albumin arnold urement (mass/volume)Ordered By: Carl Diop on 01-13-2025 Albumin [Mass/Vol] 4.2 g/dL 3.5-5.0 [facility] Serum or plasma albumin/glob ulin mass ratioOrdered By: Carl Diop on 01-13-2025 Albumin/Globulin [Mass ratio] 1.7 {ratio} 0.9-2.4 [facility] Serum or plasma alkaline annalisa sphatase measurementOrdered By: Carl Diop on 01-13-2025 ALP [Catalytic activity/Vol] 50 U/L 35-104 [facility] Serum or plasma calcium arnold urement (mass/volume)Ordered By: Carl Diop on 01-13-2025 Calcium [Mass/Vol] 8.8 mg/dL 7.6-11.0 [facility] Serum or plasma urea nitroge n measurement (mass/volume)Ordered By: Carl Diop on 01-13-2025 Urea nitrogen [Mass/Vol] 12 mg/dL 4-19 [facility] Sodium levelOrdered By: Hugo Diop on 01-13-2025 Sodium [Moles/Vol] 139 mmol/L 133-145 [facility] Squamous epithelial cells de tection in urine sediment by light microscopyOrdered By: Carl Diop on 01-13-2025 Epithelial cells.squamous LM Ql (Urine sed) 0-5 SEEN /hpf 5-10 [facility] Total proteinOrdered By: Alexander Diop on 01-13-2025 Protein [Mass/Vol] 6.7 g/dL 5.9-8.4 [facility] Transitional cells detection in urine sediment by light microscopyOrdered By: Carl Diop on 01-13-2025 Transitional cells LM Ql (Urine sed) 0-5 SEEN /hpf 0-5 [facility] Urinalysis, Completeon 01-13 BACTERIA 2+ /hpf Normal None Seen [facility] Comment on above: Order Comment: CLEAN CATCH Performed By: #### L [id number] #### [facility] [address] [place], [place], [id number] EPI,SQUAMOUS 0-5 SEEN Normal 5-10 [facility] Comment on above: Order Comment: CLEAN CATCH Performed By: #### L [id number] #### [facility] [address] [place], [address] EPI,TRANSITION 0-5 SEEN Normal 0-5 [facility] Comment on above: Order Comment: CLEAN CATCH Performed By: #### L [id number] #### [facility] [address] [place], [place], [id number] Mucus Ql (Urine sed) 2+ /hpf Normal [facility] Comment on above: Order Comment: CLEAN CATCH Performed By: #### L [id number] #### [facility] [address] [place], [address] RBC 0-5 SEEN Normal 0-5 [facility] Comment on above: Order Comment: CLEAN CATCH Performed By: #### L [id number] #### [facility] [address] [place], [place], [id number] WBC 0-5 SEEN Normal 0-5 [facility] Comment on above: Order Comment: CLEAN CATCH Performed By: #### L [id number] #### [facility] [address] [place], [place], [id number] Urine clarityOrdered By: Alexander Diop on 01-13-2025 Clarity (U) Clear Clear [facility] Urine color determinationOrd ered By: Carl Diop on 01-13-2025 Color (U) Yellow Yellow [facility] Urine glucose detectionOrder ed By: Carl Diop on 01-13-2025 Glucose Ql (U) Normal mg/dl Normal [facility] Urine leukocyte esterase det ection by dipstickOrdered By: Carl Diop on 01-13-2025 Leukocyte esterase Test strip Ql (U) 25 /ul High Negative [facility] Urine pHOrdered By: Carl shi on 01-13-2025 pH (U) 6.0 [pH] 5.0 - 8.0 [facility] Urine sediment bacteria coun t by microscopy (number/high power field)Ordered By: Carl Diop on 01-13-2025 Bacteria LM.HPF (Urine sed) [#/Area] 2 /[HPF] None Seen [facility] Urine specific gravity measu rementOrdered By: Carl Diop on 01-13-2025 Specific gravity (U) [Rel density] 1.025 1.002-1.030 [facility] Urine urobilinogen measureme ntOrdered By: Carlnehemiah Diop on 01-13-2025 Urobilinogen Ql (U) Normal mg/dl Normal [facility] White blood cell (WBC) count Ordered By: Carl Diop on 01-13-2025 WBC (Bld) [#/Vol] 8.1 10*3/uL 4.4-11.0 [facility] White blood cell countOrdere d By: Carl Diop on 01-13-2025 White blood cell count 0-5 SEEN /hpf 0-5 [facility] Emergency Department Summary on 09-05-2024 Emergency Department Summary [facility] Medical Records Department [address] [place] [address] Emergency Department Summary 09/05/24 MR#: [id number] Acct: [id number] Name: SIMONA STILL Rep #: [id number] : 2000 23 From: Shar Ring DO PCP: BOYD FLETCHER Status:DEP ER Location: ED HPI HPI - URI History of Present Illness Chief Complaint: Sore Throat Informant: patient Onset/Context/Dayana adames Onset: Days Context: Gradual Onset Timing: Continuous [...] rash Neurologic Neurologic: Reports headache(s); Denies weakness Allergic/Immunologi c Allergic/Immunologi c ED: Denies mouth swelling or urticaria PFSH PFSH Medical History Asthma Home Medications ???Medication ???Instructions [...] Primary Care Provider: Care Physician,Stefany Primary Referrals: [facility] Doctor,Out of [Non-Staff] - 5-7 Days Print Language: Eng (more content not included)... Normal [facility] M100.677on 09-05-2024 M100.677 Positive Normal [facility] Comment on above: Performed By: #### M 100.677 #### [facility] [address] [place], [address] Vital Signs Date Time Vital Sign Value Performing Clinician Familia thomas 01-13-2025 06:34-0400 Body temperature 98.2 [degF] No Primary Care Physician [facility] 01-13-2025 06:34-0400 Diastolic blood pressure 70 mm[Hg] No Primary Care Physician [facility] 01-13-2025 06:34-0400 Heart rate 65 /min No Primary Care Physician [facility] 01-13-2025 06:34-0400 Respiratory rate 18 /min No Primary Care Physician [facility] 01-13-2025 06:34-0400 SaO2% (BldA) [Mass fraction] 98 % No Primary Care Physician [facility] 01-13-2025 06:34-0400 Systolic blood pressure 101 mm[Hg] No Primary Care Physician [facility] 01-13-2025 04:03-0400 Body height 149.86 cm No Primary Care Physician [facility] 01-13-2025 04:03-0400 Body mass index (BMI) [Ratio] 24.1 kg/m2 No Primary Care Physician [facility] 01-13-2025 04:030400 Body weight 54.2 kg No Primary Care Physician [facility] Encounters Encounter Date Encounter Type Care Provider Facility Start: 01-13-2025 End: 01-13-2025 Emergency department patient visit No Primary Care Physician -Emergency Department Work Phone: Start: 09-05-2024 End: 09-05-2024 Emergency department patient visit Shar Ring Facility:[facility] Procedures Date Procedure Procedure Detail Performing Clinician Start: 01-13-2025 Urnls dip stick/tabl et reagent auto microscopy No Primary Care Physician Start: 01-13-2025 Estimated creatinine clearance No Primary Care Physician Plan of Treatment Date Care Activity Detail Author Start: 01-13-2025 End: 01-13-2025 [facility] spital Urine culture [facility] Payers Date Payer Category Payer Self-pay 2024 Unknown [id number] Unknown [id number] Unknown [id number] Social History Date Type Detail Facility Start: 01-13-2025 Tobacco smoking stat us [facility] Smokes tobacco daily (finding) [facility] Start: 2000 Sex Assigned At Female [facility] Discharge summary 01-13-2025 Note Date & Type Note Facility 01-13-2025 Discharge summary [facility] Discharge summary Note Date & Type Note Facility Discharge summary Note Date/Time January 13, 2025 6:31am [facility] Medical Records Department [address] [place] [address] Emergency Department Summary 01/13/25 MR#: [id number] Acct: [id number] Name: SIMONA STILL Rep #:[id number] : 2000 24 From: Carl Diop DO PCP: Care Physician,No Primary Status :REG ER Location: ED HPI History of Present Illness Chief Complaint: Complaint Narrative Narrative: Patient is a 24-year-old female with past medical history of asthma who presented to the emergency department the chief complaint of urinating blood. She states that she went to the bathroom and notes that when she looked in the toilet there was a significant mount of blood she had some abdominal discomfort associated with this therefore she came here for further evaluation management. Patient notes that she is currently on a antibiotic for a tooth infection. Patient notes that there is a possibility of as she does not use condoms and she is not on control but she states that she feels that this is a low chance but still possibility. [facility] Medical History Asthma Home Medications ?Medication ?Instructions ?Recorded ?Last Taken ?Type phenazopyridine 100 mg tablet 100 mg PO DAILY 01/13/25 Unknown History Allergy/AdvReac Type Severity Reaction Status Date / Time trazodone AdvReac Other Verified 01/13/25 04:03 Surgical History H/O neck surgery Social History Smoking Status: Current every day smoker tobacco type: e-cigarettes ROS ROS ED ROS Narrative Constitutional: Denies any fevers, chills, headaches Eyes: Denies change in vision double vision blurry vision Cardiovascular: Denies chest pain Abdomen: Complains of lower abdominal pain denies any nausea vomit diarrhea : Complains of blood in her urine as noted above Neurological: Denies any numbness, aches, tingling Skin: Denies any rashes or lesions EXAM Physical Exam Narrative Exam Narrative: General: Patient lying in bed rest comfortably did not appear to be acute distress Head: Atraumatic, normocephalic Eyes: PERRL bilaterally, EOMI blood, no conjunctival injection noted Neck: Soft, supple, trachea midline Cardiovascular: Regular rate and rhythm Respiratory: Clear to auscultation bilaterally Abdomen: Soft, nondistended, mild tenderness palpation in the suprapubic region no rebound or guarding on exam Extremities: +5/5 strength noted in the bilateral upper and lower extremities Neurological: Patient follow commands knew that she was at [facility] 2024 Skin: Warm, dry, intact no rashes lesions noted Const Vital Signs: 01/13/25 04:03 01/13/25 06:00 Temperature 98.2 F Temperature Source Oral Pulse Rate 90 64 Respiratory Rate 18 16 Blood Pressure 123/78 H 105/63 Blood Pressure Mean 93 77 Pulse Ox 99 100 Oxygen Delivery Method Room Air Room Air MDM MDM MDM Narrative Medical decision making narrative: Patient is a 24-year-old female who presents to the emergency department chief complaint of hematuria. On the differential diagnosis includes but not limited to UTI, ectopic , threatened miscarriage, missed . Once workupis obtained reviewed she will be reevaluated. Patient CBC reviewed and showed no evidence of cytosis white blood count 8.1, hemoglobin 13.9, plate count 235. Patient sodium normal 139, potassium normal 3.8, creatinine was 0.55. Patient AST and ALT were 16 and less than 5 respectively. Patient lipase was 24, test was negative. Patient's urinalysis showed 250 occult blood negative nitrates 25 leukocyte esterase 0-5 white cells with 2+ bacteria she does not have any urinary symptoms at this point time we will send this for culture. I discussed the results with the patient she is feeling better she like to go home at this point in time. Patient was advised to follow-up and urine culture and follow-up with her doctor in the outpatient setting. She is advised to return with worsening symptoms or any concerns or the nearest ER as she travels for her job. She is agreeable with this plan all question concerns answered shewas discharged home in stable condition. Lab Data Labs: Laboratory Results - last 24 hr 01/13/25 01/13/25 04:58 05:39 WBC 8.1 RBC 4.50 Hgb 13.9 Hct 41.0 MCV 91.1 MCH 30.9 MCHC 33.9 RDW Std Deviation 41.1 RDW Coeff of Rachelle 12.3 Plt Count 235 MPV 9.7 Immature Gran % (Auto) 0.200 Neut % (Auto) 65.6 Lymph % (Auto) 27.0 [place] % (Auto) 5.8 Eos % (Auto) 0.9 Baso % (Auto) 0.5 Absolute Neuts (auto) 5.3 Absolute Lymphs (auto) 2.19 Nucleated RBC % 0 Sodium 139 Potassium 3.8 Chloride 107 Carbon Dioxide 21.8 Anion Gap 10 BUN 12 Creatinine 0.55 L Estim Creat Clear Calc 115.24 Est GFR (MDRD) Non-Af 133 BUN/Creatinine Ratio 21.2 H Glucose 107 H Calcium 8.8 Total Bilirubin 0.70 AST 16 ALT < 5 Alkaline Phosphatase 50 Total Protein 6.7 Albumin 4.2 Globulin 2.5 Albumin/Globulin Ratio 1.7 Lipase 24 Serum , Qual NEGATIVE Urine Color Yellow Urine Clarity Clear Urine pH 6.0 Ur Specific [place] 1.025 Urine Protein 15 H Urine Glucose (UA) Normal Urine Ketones 15 H Urine Occult Blood 250 H Urine Nitrite Negative Urine Bilirubin Negative Urine Urobilinogen Normal Ur Leukocyte Esterase 25 H Urine RBC 0-5 SEEN Urine WBC 0-5 SEEN Ur Squamous Epith Cells 0-5 SEEN Ur Transition Epith Cell 0-5 SEEN Urine Bacteria 2+ Urine Mucus 2+ Discharge Plan Triage Chief Complaint: Complaint ED Provider: Carl Diop Dx/Rx/DC Orders Clinical Impression: Hematuria, Abdominal pain Prescriptions: No Action phenazopyridine 100 mg tablet 100 mg PO DAILY Primary Care Provider: Care Physician,No Primary Referrals: Care Physician,No Primary [Primary Care Provider] - Activity Restrictions/Additional Instructions: Follow-up on the urine culture to see if you need antibiotics for your urine or not for urinary tract infection. Follow-up your doctor in the outpatient setting. Return with worsening symptoms or other concerns or if you are not in the area and you have worsening symptoms go to the closest ER. Print Language: Kittitian Disposition Disposition: Home, Self Care What to do if you have Problems For any increased pain, shortness of breath, bleeding, nausea or vomiting, chestpain, or any unexpected problems, contact your Primary Care Provider. Call [facility] ([phone]) or report to the closest Emergency Room. Call 911 if necessary. 01/13/25 0631 <Electronically signed by Carl Diop DO> Cosigner Signature (if applicable): CC: No Primary Care Physician ~ Signed [facility] Work Phone: Evaluation note Note Date & Type Note Facility Evaluation note No assessment information availa ble [facility] Work Phone: Hospital Discharge instructions Note Date & Type Note Facility Hospital Discharge instructions Additional Instructions Follow-up on the urine culture to see if you need antibiotics for your urine or not for urinary tract infection. Follow-up your doctor in the outpatient setting. Return with worsening symptoms or other concerns or if you are not in the area and you have worsening symptoms go to the closest ER. [facility] Work Phone: Reason for referral (narrative) Note Date & Type Note Facility Reason for referral (narrative) No reason for referral information available [facility] Work Phone: Chief Complaint and Reason for Visit Chief Complaint Admit Date hematuria January 13, 2025 4:02 am Advance Directives No Advanced Directives Records Found Advance Directive Response Recorded Date/ Time Do you have a Healthcare Power of Insurance Risk Surveyor? No January 13, 2025 4:16am Summary Purpose Family History No Family History Records Found Additional Source Comments Care Teams (unrecognized sec tion and content) Team Status: Active Member Role/Relationship Status Dates No Primary Care Physician Primary Care Provider Active Team Status: Inactive Member Role/Relationship Status Dates No Primary Care Physician Primary Care Provider Active Start: January 13, 2025 End: January 13, 2025 Dr. Carl Diop , DO Emergency Provider Active Start: January 13, 2025 End: January 13, 2025 Goals (unrecognized section and content) Goals may be documented in a n alternate section INFORMATION SOURCE (unrecogn ized section and content) DATE CREATED AUTHOR 01/23/2025 [facility] FOR RECORDS PERTAINING TO PATIENTS WHO ARE [...] BE BASED ON THE PRIMARY CLINICAL RECORDS. [facility] [employer] provides no warranty or guarantee of the accuracy or completeness of information in this document.
[2025-02-03 20:24] VITALS: BP 112/84; PULSE 71; RESP 14; TEMP 36.6; O2SAT 97
== END 2025-02-03 20:29 | disposition home or self-care (01) ==
PROVIDERS: Emergency Provider Emergency Medicine; Visit Provider Emergency Medicine
DX: N76.4 Abscess of vulva (principal); F17.290 Nicotine dependence, other tobacco product, uncomplicated
CPT/HCPCS: 10060; 99282

== ENCOUNTER 2025-02-09 17:44 | Emergency (ER) | payer OTHER, SELFPAY ==
[2025-02-09 17:46] VITALS: BP 104/56; PULSE 82; RESP 18; TEMP 35.8; O2SAT 97
--- NOTE | 2025-02-09 18:20 | EX.ED.DYSGE1 ---
HPI History of Present Illness Chief Complaint: Abscess Narrative Narrative: Chief complaint and HPI: Concern for left labial abscess. 24-year-old female presents for evaluation for concern of left labial abscess. Patient states that she is currently in town due to work. She states she is scheduled to go back to her [id number] 1 [place]. Patient states she developed a recent left labial abscess in which it was I&D in our emergency department. She states the past 2 days she has had pain in the area. Concerned she has another abscess. Denies any fever, chills, nausea, vomiting. Review of systems: See HPI Medications: As listed on the chart Allergies: As listed on the chart PFSH: Per chart Vital signs: As listed on the chart. Reviewed. Physical exam: Gen: A&O x3, NAD Head: Normocephalic, atraumatic Eyes: No sclera icterus, conjunctiva clear ENT: Moist mucous membranes CV: Regular rate Resp: Nonlabored respirations GI: Abd soft, non-distended, non-tender, no r/r/g Pelvic: Normal external genitalia. There is a small area of induration to the left side of the vaginal opening without surrounding erythema, fluctuance, warmth, purulence, crepitus. No significant tenderness. No rashes. Tampon in place. Musc: Full ROM Skin: Warm, dry Neuro: Alert, oriented, grossly intact Psych: Cooperative, appropriate mood and affect [facility] Medical History Asthma Home Medications ?Medication ?Instructions ?Recorded ?Last Taken ?Type phenazopyridine 100 mg tablet 100 mg PO DAILY 01/13/25 Unknown History Allergy/AdvReac Type Severity Reaction Status Date / Time trazodone AdvReac Other Verified 02/09/25 17:45 Surgical History H/O neck surgery Social History Smoking Status: Current every day smoker tobacco type: e-cigarettes EXAM Physical Exam Const Vital Signs: 02/09/25 17:46 Temperature 96.5 F L Temperature Source Temporal Pulse Rate 82 Respiratory Rate 18 Blood Pressure 104/56 L Blood Pressure Mean 72 Pulse Ox 97 Oxygen Delivery Method Room Air MDM MDM MDM Narrative Medical decision making narrative: 24-year-old female presents for evaluation for concern of left labial abscess. Patient states that she is currently in town due to work. She states she is scheduled to go back to her [id number] 1 week. Patient states she developed a recent left labial abscess in which it was I&D in our emergency department. She states the past 2 days she has had pain in the area. Concerned she has another abscess. Denies systemic symptoms. On physical exam, there is small area of induration to the left side of the vaginal opening without surrounding erythema, fluctuance, warmth, purulence, crepitus. No significant tenderness. No rash. Physical exam is not consistent with an abscess. This may be a cyst. On chart review, patient was seen in our emergency department on 02/03/2025 for same complaint. Physical exam appears similar on chart review. Patient did receive an incision and drainage at the time in which a small amount of blood was expelled. She was not placed on antibiotics. I do not think incision and drainage is warranted at this time. I have a low suspicion for abscess or infection. I did inform the patient of this. She became very tearful stating that she is concerned this is becoming infected. I did give her the option of starting her on antibiotics for possible early infection although I do think this is more of a cyst. She would like to trial the antibiotics. She states she will follow-up with her doctors in 1 week when she returns back home. Patient stable to discharge home. She was given her first dose of Augmentin here in the emergency department. Impression: 1. Left labial cyst versus early infection Discharge Plan Triage Chief Complaint: Abscess ED Provider: Guillermo Lynn Dx/Rx/DC Orders Prescriptions: No Action phenazopyridine 100 mg tablet 100 mg PO DAILY Primary Care Provider: NOT,DEFINED Referrals: NOT,DEFINED [Primary Care Provider] - Print Language: Prydeinig
--- OUTSIDE RECORDS SUMMARY | 2025-02-09 18:31 | XMS RPT_ITS | CCD ---
Author Organization [facility] Care Team Providers Care Microcomputer Support Specialist Name Role Phone Care Physician, No Primary Primary Care Provider Unavailable Dr. Carl Diop DO Emergency Provider Dr. Carl Diop DO Attending Provider Dr. Alejandro Donis MD Emergency Provider [phone] BOYD FLETCHER Primary Care Provider PRANEETH MATHEW Primary Care Unavailable Alejandro Donis Attending Unavailable Care Physician, No Primary Primary Care Unava ilable Carl Diop Attending Unavailable PRANEETH MATHEW Primary Care Unavailable Shar Ring Attending Unavailable Allergies Allergy Classification Reported Allergen(s) Allergy Type Date of Onset Reaction(s) Facility (2 sources) traZODone Drug Allergy 5 Other [facility] Comment on above: HALLUCINATIONS (1 source) traZODone Drug Allergy 5 [facility] Repository Medications Current Medications Medication Drug Class(es) Dates Sig (Normalized) Sig (Original) phenazopyridine hydrochloride 100 mg oral tablet (2 sources) Start: 01-13-2025 take 1 tablet by mouth once daily Phenazopyridine 100 mg tablet Active 100 mg PO DAILY January 13, 2025 12:00am Completed/Discontinued Medications Medication Drug Class(es) Dates Sig (Normalized) Sig (Original) penicillin v potassium 500 mg oral tablet (2 sources) Start: 09-05-2024 End: 01-13-2025 take 1 tablet by mouth four times daily Penicillin V Potassium 500 mg tablet Discontinued 500 mg PO 4 TIMES DAILY 40 0 September 05, 2024 1:00am January 13, 2025 6:26am Problems Active Problems Problem Classification Problem Date Documented Da te Episodic/Chronic Abdominal pain (3 sources) Abdominal pain; Translations: [Unspecified abdominal pain] Onset: 01-19-2025 01-13-2025 Episodic Genitourinary symptoms and ill-defined conditions (2 sources) Blood in urine; Translations: [Hematuria, unspecified] 01-13-2025 Episodic Inflammatory diseases of female pelvic organs (1 source) Abscess of labia; Translations: [Abscess of vulva] 02-03-2025 Episodic Residual codes; unclassified (2 sources) Nicotine-filled electronic cigarette user; Translations: [Tobacco use] 09-05-2024 Episodic Past or Other Problems Problem Classification Problem Date Documented Date Episodic/Chronic Other upper respiratory infections (3 sources) Streptococcal sore throat; Translations: [Streptococcal pharyngitis] Onset: 09-20-2024 09-13-2024 Episodic Results Test Name Value Interpretation Reference Range Facility Emergency Department Summary on 02-03-2025 Emergency Department Summary [facility] Medical Records Department [address] [place] [address] Emergency Department Summary 02/03/25 MR#: [id number] Acct: [id number] Name: SIMONA STILL Rep #: [id number] : 2000 24 From: Brittany FAGAN PCP: BOYD FLETCHER Status:DEP ER Location: ED HPI History of Present Illness Chief Complaint: Abscess Narrative Narrative: Patient presenting today due to concerns for a left labial abscess that she discovered today while in the shower. She did try to express this herself and squeezed the abscess causing it to pop, she did have purulent discharge expelled from the area. She reports that she was recently tested for STDs and does not have further STD concerns. She denies any fevers, chills, nausea, or vomiting. [facility] Medical History Asthma Home Medications ???Medication ???Instructions ???Recorded ???Last Taken ???Type phenazopyridine 100 mg tablet 100 mg PO DAILY 01/13/25 Unknown H istory Allergy/AdvReac Type Severity Reaction Status Date / Time trazodone AdvReac Other Verified 02/03/25 19:13 Surgical History H/O neck surgery Social History Smoking Status: Current every day smoker tobacco type: e-cigarettes ROS ROS ED Constitutional Constitutional ED: Denies chills or fever(s) Cardiovascular Cardiovascular: Denies chest pain Respiratory/Chest Respiratory/Chest: Denies dyspnea Gastrointestinal Gastrointestinal: Denies abdominal pain, nausea or vomiting Genitourinary Genitourinary ED: Denies dysuria, hematuria or urinary frequency Musculoskeletal Musculoskeletal: Denies arthralgias or myalgias Integumentary Reports abscess Neurologic Neurologic: Denies weakness EXAM Physical Exam Const Vital Signs: 02/03/25 19:10 02/03/25 20:24 Temperature 98.0 F 98 F Temperature Source Temporal Pulse Rate 88 71 Respiratory Rate 18 14 Blood Pressure 101/82 H 112/84 H Blood Pressure Mean 88 93 Pulse Ox 98 97 Oxygen Delivery Method Room Air Positive well nourished, well developed and no apparent distress General Appearance ED: well developed HEENT Reports normocephalic and head/scalp atraumatic Mouth ED: Yes moist mucous membranes normal Eyes PERRL and EOMs intact bilaterally Neck full ROM and supple Chest Wall inspection of chest normal Resp normal respiratory effort and clear to auscultation bilaterally Cardio regular rate and regular rhythm GI soft to palpation, non-tender, non-distended and no masses Narrative: Small fluctuant abscess to the left side of the vaginal opening, no surrounding erythema, warmth, or active purulence from the area. Back/Spine normal ROM and normal to inspection Extremity normal to inspection and full ROM Neuro oriented x3, CN's II-XII intact bilaterally, moves all extremities, no focal motor deficits and no sensory deficits noted Sensorium / Orientation: awake and alert Psych mental status grossly normal and thought process normal Skin no rashes or lesions noted and no wounds Physical Exam Const Vital Signs: 02/03/25 19:10 02/03/25 20:24 Temperature 98.0 F 98 F Temperature Source Temporal Pulse Rate 88 71 Respiratory Rate 18 14 Blood Pressure 101/82 H 112/84 H Blood Pressure Mean 88 93 Pulse Ox 98 97 Oxygen Delivery Method Room Air MDM MDM MDM Narrative Medical decision making narrative: Patient presenting today with a small abscess to the inferior and left side of the vaginal opening, she pushed on the area while in the shower and pus came out of it. She denies any STD concerns. 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 There is no surrounding cellulitis. She has a small fluctuant abscess to the area and she is agreeable to I D this. It was cleaned with iodine and anesthetized with 1% lidocaine, a small incision was made with a #11 blade and a small amount of blood was expelled. Recommended warm compresses to the area, at this time I do not feel she needs antibiotics. Wound care instructions were discussed with her as well as return instructions. Patient discharged home in stable condition. I have personally performed a face to face assessment of the patient and have reviewed the GIGI Note. I performed a substantive portion of the visit including all aspects of the following. My mayes findings include: History is patient presents because of pain and swelling inferior and to the left of the vaginal opening. She states she pushed on it forcefully and pus and blood came out. She has no history of ST (more content not included)... Normal [facility] Urine Cultureon 01-14-2025 URC Culture exhibits no growth. Normal [facility] Comment on above: Performed By: #### M 100.2200 #### [facility] [address] [place], [place], [id number] Absolute lymphocyte countOrd ered By: Carl Diop on 01-13-2025 Lymphocytes Auto (Unsp spec) [#/Vol] 2.19 10*3/uL 0.83-4.51 [facility] Absolute neutrophil countOrd ered By: Carl Diop on 01-13-2025 Neutrophils (Bld) [#/Vol] 5.3 10*3/uL 2.0-7.7 [facility] Anion gap in Serum or Plasma Ordered By: Carl Diop on 01-13-2025 Anion gap [Moles/Vol] 10 mmol/L 5-15 [facility] Automated lymphocyte count a s percentage of total leukocytesOrdered By: Carl Diop on 01-13-2025 Lymphocytes/100 WBC Auto (Unsp spec) 27.0 % 19-41 [facility] BUN/creatinine ratioOrdered By: Carl Diop on 07-12-2025 Urea nitrogen/Creatinine [Mass ratio] 21.2 mg/mg High 10-20 [facility] Basophil percentageOrdered B y: Carl Diop on 01-13-2025 Basophils/100 WBC (Bld) 0.5 % 0-[address] [facility] Bilirubin Test strip Ql (U)O rdered By: Carl Diop on 01-13-2025 Bilirubin Ql (U) Negative Negative [facility] Bilirubin, totalOrdered By: Carl Diop on 01-13-2025 Bilirubin [Mass/Vol] 0.70 mg/dL 0.00-1.30 [facility] CBC W/Diff, Automatedon 01-02-2024 Absolute Lymph 2.19 X10 3/uL Normal 0.83-4.51 [facility] Comment on above: Performed By: #### L 700.6800, L501.2450, L500.4050, L100.0100 #### [facility] [address] [place], [address] Absolute Neut 5.3 X10 3/uL Normal 2.0-7.7 [facility] Comment on above: Performed By: #### L 700.6800, L501.2450, L500.4050, L100.0100 #### [facility] [address] [place], [address] Basophils/100 WBC (Bld) 0.5 % Normal 0-[address] [facility] Comment on above: Performed By: #### L 700.6800, L501.2450, L500.4050, L100.0100 #### [facility] [address] [place], [address] Eosinophils/100 WBC (Bld) 0.9 % Normal 0-5 [facility] Comment on above: Performed By: #### L 700.6800, L501.2450, L500.4050, L100.0100 #### [facility] [address] [place], [address] Erythrocyte distribution width (RBC) [Ratio] 12.3 % Normal 11.6-14.6 [facility] Comment on above: Performed By: #### L 700.6800, L501.2450, L500.4050, L100.0100 #### [facility] [address] [place], [address] Hematocrit (Bld) [Volume fraction] 41.0 % Normal 37-47 [facility] Comment on above: Performed By: #### L 700.6800, L501.2450, L500.4050, L100.0100 #### [facility] [address] [place], [address] Hemoglobin (Bld) [Mass/Vol] 13.9 g/dL Normal 12.0-15.0 [facility] Comment on above: Performed By: #### L 700.6800, L501.2450, L500.4050, L100.0100 #### [facility] [address] [place], [address] IG% 0.200 Normal 0.0-0.9 [facility] Comment on above: Result Comment: IG% - Immature Granulocytes (promyelocytes, myelocytes and metamyelocytes) > 1% indicates that a LEFT SHIFT is Present. Performed By: #### L 700.6800, L501.2450, L500.4050, L100.0100 #### [facility] [address] [place], [address] Lymphocytes/100 WBC (Bld) 27.0 % Normal 19-41 [facility] Comment on above: Performed By: #### L 700.6800, L501.2450, L500.4050, L100.0100 #### [facility] [address] [place], [address] MCH (RBC) [Entitic mass] 30.9 pg Normal 27.0-32.0 [facility] Comment on above: Performed By: #### L 700.6800, L501.2450, L500.4050, L100.0100 #### [facility] [address] [place], [address] MCHC (RBC) [Mass/Vol] 33.9 g/dL Normal 32-36 [facility] Comment on above: Performed By: #### L 700.6800, L501.2450, L500.4050, L100.0100 #### [facility] [address] [place], [address] MCV (RBC) [Entitic vol] 91.1 fL Normal 81-99 [facility] Comment on above: Performed By: #### L 700.6800, L501.2450, L500.4050, L100.0100 #### [facility] [address] [place], [address] Monocytes/100 WBC (Bld) 5.8 % Normal 0-10 [facility] Comment on above: Performed By: #### L 700.6800, L501.2450, L500.4050, L100.0100 #### [facility] [address] [place], [address] Neutrophils/100 WBC (Bld) 65.6 % Normal 47-70 [facility] Comment on above: Performed By: #### L 700.6800, L501.2450, L500.4050, L100.0100 #### [facility] [address] [place], [address] Nucleated RBC (Bld) [#/Vol] 0 10*3/uL Normal 0-5 [facility] Comment on above: Performed By: #### L 700.6800, L501.2450, L500.4050, L100.0100 #### [facility] [address] [place], [address] Platelet mean volume (Bld) [Entitic vol] 9.7 fL Normal 6.2-12.0 [facility] Comment on above: Performed By: #### L 700.6800, L501.2450, L500.4050, L100.0100 #### [facility] [address] [place], [address] Platelets (Bld) [#/Vol] 235 10*3/uL Normal 150-450 [facility] Comment on above: Performed By: #### L 700.6800, L501.2450, L500.4050, L100.0100 #### [facility] [address] [place], [address] RBC (Bld) [#/Vol] 4.50 10*6/uL Normal 4.2-5.4 [facility] Comment on above: Performed By: #### L 700.6800, L501.2450, L500.4050, L100.0100 #### [facility] [address] [place], [address] RDW SD 41.1 fl Normal 35.1-43.9 [facility] Comment on above: Performed By: #### L 700.6800, L501.2450, L500.4050, L100.0100 #### [facility] [address] [place], [address] WBC (Bld) [#/Vol] 8.1 10*3/uL Normal 4.4-11.0 [facility] Comment on above: Performed By: #### L 700.6800, L501.2450, L500.4050, L100.0100 #### [facility] [address] [place], [address] Carbon dioxide, total [Moles /volume] in Central venous bloodOrdered By: Carl Diop on 01-13-2025 CO2 [Moles/Vol] 21.8 mmol/L 21.0-32.0 [facility] Chloride assayOrdered By: Vern Diop on 01-13-2025 Chloride [Moles/Vol] 107 mmol/L 98-108 [facility] Comprehensive Metabolic Prof ilon 01-13-2025 Albumin [Mass/Vol] 4.2 g/dL Normal 3.5-5.0 [facility] Comment on above: Performed By: #### L 700.6800, L501.2450, L500.4050, L100.0100 #### [facility] [address] [place], [address] Albumin/Globulin [Mass ratio] 1.7 {ratio} Normal 0.9-2.4 [facility] Comment on above: Performed By: #### L 700.6800, L501.2450, L500.4050, L100.0100 #### [facility] [address] [place], [address] ALK PHOS 50 U/L Normal 35-104 [facility] Comment on above: Performed By: #### L 700.6800, L501.2450, L500.4050, L100.0100 #### [facility] [address] [place], [address] ALT [Catalytic activity/Vol] U/L Normal <=34 [facility] Comment on above: Performed By: #### L 700.6800, L501.2450, L500.4050, L100.0100 #### [facility] [address] [place], [address] AST [Catalytic activity/Vol] 16 U/L Normal <=31 [facility] Comment on above: Performed By: #### L 700.6800, L501.2450, L500.4050, L100.0100 #### [facility] [address] [place], [address] Bilirubin [Mass/Vol] 0.70 mg/dL Normal 0.00-1.30 [facility] Comment on above: Performed By: #### L 700.6800, L501.2450, L500.4050, L100.0100 #### [facility] [address] [place], [address] BUN/CRE 21.2 RATIO High 10-20 [facility] Comment on above: Performed By: #### L 700.6800, L501.2450, L500.4050, L100.0100 #### [facility] [address] [place], [address] Calcium [Mass/Vol] 8.8 mg/dL Normal 7.6-11.0 [facility] Comment on above: Performed By: #### L 700.6800, L501.2450, L500.4050, L100.0100 #### [facility] [address] [place], [address] Chloride [Moles/Vol] 107 mmol/L Normal 98-108 [facility] Comment on above: Performed By: #### L 700.6800, L501.2450, L500.4050, L100.0100 #### [facility] [address] [place], [address] CO2 [Moles/Vol] 21.8 mmol/L Normal 21.0-32.0 [facility] Comment on above: Performed By: #### L 700.6800, L501.2450, L500.4050, L100.0100 #### [facility] [address] [place], [address] Creatinine [Mass/Vol] 0.55 mg/dL Low 0.70-1.20 [facility] Comment on above: Performed By: #### L 700.6800, L501.2450, L500.4050, L100.0100 #### [facility] [address] [place], [address] ECRCL 115.24 ml/min Normal 50-250 [facility] Comment on above: Performed By: #### L 700.6800, L501.2450, L500.4050, L100.0100 #### [facility] [address] [place], [address] GAP 10 Normal 5-15 [facility] Comment on above: Performed By: #### L 700.6800, L501.2450, L500.4050, L100.0100 #### [facility] [address] [place], [address] GFR/1.73 sq M.predicted among non-blacks MDRD (S/P/Bld) [Vol rate/Area] 133 mL/min/{1.73_m2} Normal >60 [facility] Comment on above: Result Comment: mL/m in/1.73m2 CKD-EPI Creatinine Equation (2020) Performed By: #### L 700.6800, L501.2450, L500.4050, L100.0100 #### [facility] [address] [place], [address] Globulin (S) [Mass/Vol] 2.5 g/dL Normal 2.2-4.2 [facility] Comment on above: Performed By: #### L 700.6800, L501.2450, L500.4050, L100.0100 #### [facility] [address] [place], [address] Glucose [Mass/Vol] 107 mg/dL High 70-99 [facility] Comment on above: Performed By: #### L 700.6800, L501.2450, L500.4050, L100.0100 #### [facility] [address] [place], [address] Potassium [Moles/Vol] 3.8 mmol/L Normal 3.3-5.1 [facility] Comment on above: Result Comment: Hemo lysis present, Results??could be affected. ?? Performed By: #### L 700.6800, L501.2450, L500.4050, L100.0100 #### [facility] [address] [place], [address] Sodium [Moles/Vol] 139 mmol/L Normal 133-145 [facility] Comment on above: Performed By: #### L 700.6800, L501.2450, L500.4050, L100.0100 #### [facility] [address] [place], [address] T PROT 6.7 g/dL Normal 5.9-8.4 [facility] Comment on above: Performed By: #### L 700.6800, L501.2450, L500.4050, L100.0100 #### [facility] [address] [place], [address] Urea nitrogen [Mass/Vol] 12 mg/dL Normal 4-19 [facility] Comment on above: Performed By: #### L 700.6800, L501.2450, L500.4050, L100.0100 #### [facility] [address] [place], [address] Emergency Department Summary on 01-13-2025 Emergency Department Summary [facility] Medical Records Department [address] [place] [address] Emergency Department Summary 01/13/25 MR#: [id number] Acct: [id number] Name: SIMONA STILL Rep #: [id number] : 2000 24 From: Carl Diop DO [...] is a low chance but still possibility. [facility] Medical History Asthma Home Medications ???Medication [...] follow commands knew that she was at [facility] year is 2024 Skin: Warm, dry, intact [...] % (Auto) 65.6 Lymph % (Auto) 27.0 [place] % (Auto) 5.8 Eos % (Auto) 0.9 Baso % (Auto) 0.5 Absolute Neuts (auto) 5.3 Absolute Lymphs (auto) 2.19 Nucleated RBC % 0 So (more content not included)... Normal [facility] Eosinophil percentageOrdered By: Carl Diop on 01-13-2025 Eosinophils/100 WBC (Bld) 0.9 % 0-5 [facility] Erythrocyte distribution wid th ratioOrdered By: Carl Diop on 01-13-2025 Erythrocyte distribution width (RBC) [Ratio] 12.3 % 11.6-14.6 [facility] Erythrocyte distribution wid th standard deviationOrdered By: Carl Diop on 01-13-2025 Erythrocyte distribution width (RBC) [Ratio] 41.1 fl 35.1-43.9 [facility] Glomerular filtration rate ( GFR) estimation/1.73 sq m using serum, plasma, or whole bOrdered By: Carl Diop on 01-13-2025 GFR/1.73 sq M.predicted among non-blacks MDRD (S/P/Bld) [Vol rate/Area] 133 mL/min/{1.73_m2} >60 [facility] Comment on above: mL/min/1.73m2 CKD-EP I Creatinine Equation (2020) Hematocrit Auto (Bld) [Volum e fraction]Ordered By: Carl Diop on 01-13-2025 Hematocrit (Bld) [Volume fraction] 41.0 % 37-47 [facility] Hemoglobin measurementOrdere d By: Carl Diop on 01-13-2025 Hemoglobin (Bld) [Mass/Vol] 13.9 g/dL 12.0-15.0 [facility] Immature granulocytes/100 WB C Auto (Bld)Ordered By: Carl Diop on 01-13-2025 Immature granulocytes/100 WBC (Bld) 0.200 % 0.0-0.9 [facility] Comment on above: IG% - Immature Granu locytes (promyelocytes, myelocytes and metamyelocytes) > 1% indicates that a LEFT SHIFT is Present. Ketones Test strip Ql (U)Ord ered By: Carl Diop on 01-13-2025 Ketones Ql (U) 15 mg/dl High Negative [facility] - Chemistry and C hemistry - challengeOrdered By: Carl Diop on 01-13-2025 AST [Catalytic activity/Vol] 16 U/L <32 [facility] Lipaseon 01-13-2025 Lipase [Catalytic activity/Vol] 24 U/L Normal 13-75 [facility] Comment on above: Result Comment: Caitlin dowd note: LIPASE revised reference range effective 22. New Lipase methodology. Expected to produce lower values than the previous assay method. NEW Reference Range: 13 - 75 U/L Performed By: #### L 700.6800, L501.2450, L500.4050, L100.0100 #### [facility] [address] [place], [address] Lipase measurementOrdered By : Carl Diop on 01-13-2025 Lipase [Catalytic activity/Vol] 24 U/L 13-75 [facility] Comment on above: Please note:LIPASE r evised reference range effective 22. New Lipase methodology. Expected to produce lower values than the previous assay method. NEW Reference Range: 13 - 75 U/L MCV (mean corpuscular volume ) determinationOrdered By: Carl Diop on 01-13-2025 MCV (RBC) [Entitic vol] 91.1 fL 81-[address] [facility] Mean corpuscular hemoglobin (MCH) determinationOrdered By: Carl Diop on 01-13-2025 MCH (RBC) [Entitic mass] 30.9 pg 27.0-32.0 [facility] Mean corpuscular hemoglobin concentration (MCHC) determinationOrdered By: Carl Diop on 01-13-2025 MCHC (RBC) [Mass/Vol] 33.9 g/dL 32-36 [facility] Mean platelet volume determi nationOrdered By: Carl Diop on 01-13-2025 Platelet mean volume (Bld) [Entitic vol] 9.7 fL 6.2-12.0 [facility] Microscopic analysis of urin e for red blood cells (RBC)Ordered By: Carl Diop on 01-13-2025 Microscopic analysis of urine for red blood cells (RBC) 0-5 SEEN /hpf 0-5 [facility] Monocyte percentageOrdered B y: Carl Diop on 01-13-2025 Monocytes/100 WBC (Bld) 5.8 % 0-[address] [facility] Mucus LM Ql (Urine sed)Order ed By: Carl Diop on 01-13-2025 Mucus Ql (Urine sed) 2+ /hpf [facility] Neutrophil percentageOrdered By: Carl Diop on 01-13-2025 Neutrophils/100 WBC (Bld) 65.6 % 47-70 [facility] Nitrite Test strip Ql (U)Ord ered By: Carl Diop on 01-13-2025 Nitrite Ql (U) Negative Negative [facility] Nucleated red blood cell per centageOrdered By: Carl Diop on 01-13-2025 Nucleated RBC/100 WBC (Bld) [Ratio] 0 % 0-5 [facility] Platelet countOrdered By: Vern Diop on 01-13-2025 Platelets (Bld) [#/Vol] 235 10*3/uL 150-450 [facility] Potassium measurement (mass/ volume)Ordered By: Carl Diop on 01-13-2025 Potassium (Unsp spec) [Mass/Vol] 3.8 mmol/L 3.3-5.1 [facility] Comment on above: Hemolysis present, R esults could be affected. ,Serum,hCG Quali.on 01-13-2025 HCG, SERUM QUAL Negative Normal [facility] Comment on above: Performed By: #### L 700.6800, L501.2450, L500.4050, L100.0100 #### [facility] [address] [place], [place], [id number] Protein Test strip Ql (U)Ord ered By: Carl Diop on 01-13-2025 Protein Ql (U) 15 mg/dl High Negative [facility] RBC Auto (Bld) [#/Vol]Ordere d By: Carl Diop on 01-13-2025 RBC (Bld) [#/Vol] 4.50 10*6/uL 4.2-5.4 [facility] Serum beta-hCG test, qualita tiveOrdered By: Carl Diop on 01-13-2025 Beta HCG ( test) Ql Negative [facility] Serum creatinine measurement (mass/volume)Ordered By: Carl Diop on 01-13-2025 Creatinine [Mass/Vol] 0.55 mg/dL Low 0.70-1.20 [facility] Serum globulin measurementOr dered By: Carl Diop on 01-13-2025 Globulin (S) [Mass/Vol] 2.5 g/dL 2.2-4.[address] [facility] Serum glucose measurement (m ass/volume)Ordered By: Carl Diop on 01-13-2025 Glucose [Mass/Vol] 107 mg/dL High 70-99 [facility] Serum or plasma alanine bucio otransferase (ALT) measurementOrdered By: Carl Diop on 01-13-2025 ALT [Catalytic activity/Vol] U/L <35 [facility] Serum or plasma albumin arnold urement (mass/volume)Ordered By: Carl Diop on 01-13-2025 Albumin [Mass/Vol] 4.2 g/dL 3.5-5.0 [facility] Serum or plasma albumin/glob ulin mass ratioOrdered By: Carl Diop on 01-13-2025 Albumin/Globulin [Mass ratio] 1.7 {ratio} 0.9-2.4 [facility] Serum or plasma alkaline annalisa sphatase measurementOrdered By: Carl Diop on 01-13-2025 ALP [Catalytic activity/Vol] 50 U/L 35-104 [facility] Serum or plasma calcium arnold urement (mass/volume)Ordered By: Carl Diop on 01-13-2025 Calcium [Mass/Vol] 8.8 mg/dL 7.6-11.0 [facility] Serum or plasma urea nitroge n measurement (mass/volume)Ordered By: Carl Diop on 01-13-2025 Urea nitrogen [Mass/Vol] 12 mg/dL 4-19 [facility] Sodium levelOrdered By: Hugo Diop on 01-13-2025 Sodium [Moles/Vol] 139 mmol/L 133-145 [facility] Squamous epithelial cells de tection in urine sediment by light microscopyOrdered By: Carl Diop on 01-13-2025 Epithelial cells.squamous LM Ql (Urine sed) 0-5 SEEN /hpf 5-10 [facility] Total proteinOrdered By: Alexander Diop on 01-13-2025 Protein [Mass/Vol] 6.7 g/dL 5.9-8.4 [facility] Transitional cells detection in urine sediment by light microscopyOrdered By: Carl Diop on 01-13-2025 Transitional cells LM Ql (Urine sed) 0-5 SEEN /hpf 0-5 [facility] Urinalysis, Completeon 01-13 BACTERIA 2+ /hpf Normal None Seen [facility] Comment on above: Order Comment: CLEAN CATCH Performed By: #### L 400.0001 #### [facility] [address] [place], [address] EPI,SQUAMOUS 0-5 SEEN Normal 5-10 [facility] Comment on above: Order Comment: CLEAN CATCH Performed By: #### L 400.0001 #### [facility] [address] [place], [address] EPI,TRANSITION 0-5 SEEN Normal 0-5 [facility] Comment on above: Order Comment: CLEAN CATCH Performed By: #### L 400.0001 #### [facility] [address] [place], [address] Mucus Ql (Urine sed) 2+ /hpf Normal [facility] Comment on above: Order Comment: CLEAN CATCH Performed By: #### L 400.0001 #### [facility] [address] [place], [address] RBC 0-5 SEEN Normal 0-5 [facility] Comment on above: Order Comment: CLEAN CATCH Performed By: #### L 400.0001 #### [facility] [address] [place], [address] WBC 0-5 SEEN Normal 0-5 [facility] Comment on above: Order Comment: CLEAN CATCH Performed By: #### L 400.0001 #### [facility] [address] [place], [address] Urine clarityOrdered By: Alexander Diop on 01-13-2025 Clarity (U) Clear Clear [facility] Urine color determinationOrd ered By: Carl Diop on 01-13-2025 Color (U) Yellow Yellow [facility] Urine cultureOrdered By: Alexander Diop on 01-13-2025 Bacteria identified Cx Nom (U) Culture exhibits no growth. [facility] Urine glucose detectionOrder ed By: Carl Diop on 01-13-2025 Glucose Ql (U) Normal mg/dl Normal [facility] Urine leukocyte esterase det ection by dipstickOrdered By: Carl Diop on 01-13-2025 Leukocyte esterase Test strip Ql (U) 25 /ul High Negative [facility] Urine pHOrdered By: Carl shi on 01-13-2025 pH (U) 6.0 [pH] 5.0 - 8.0 [facility] Urine sediment bacteria coun t by microscopy (number/high power field)Ordered By: Carl Diop on 01-13-2025 Bacteria LM.HPF (Urine sed) [#/Area] 2 /[HPF] None Seen [facility] Urine specific gravity measu rementOrdered By: Carl Diop on 01-13-2025 Specific gravity (U) [Rel density] 1.025 1.002-1.030 [facility] Urine urobilinogen measureme ntOrdered By: Carl Diop on 01-13-2025 Urobilinogen Ql (U) Normal mg/dl Normal [facility] White blood cell (WBC) count Ordered By: Carl Diop on 01-13-2025 WBC (Bld) [#/Vol] 8.1 10*3/uL 4.4-11.0 [facility] White blood cell countOrdere d By: Carl Diop on 01-13-2025 White blood cell count 0-5 SEEN /hpf 0-5 [facility] Emergency Department Summary on 09-05-2024 Emergency Department Summary [facility] Medical Records Department [address] [place] [id number] Emergency Department Summary 09/05/24 MR#: [id number] Acct: [id number] Name: SIMONA STILL Rep #: [id number] : 2000 23 From: Shar Ring DO [...] c ED: Denies mouth swelling or urticaria [facility] Medical History Asthma Home Medications ???Medication ???Instructions [...] Qty: 40 0RF Primary Care Provider: Care Physician,No Primary Referrals: [facility] Doctor,Out of [Non-Staff] - 5-7 Days Print Language: Eng (more content not included)... Normal [facility] M100.677on 09-05-2024 M100.677 Positive Normal [facility] Comment on above: Performed By: #### M 100.677 #### [facility] [address] [place], [address] Vital Signs Date Time Vital Sign Value Performing Clinician Jo Anni litsylvia 02-03-2025 20:24-0400 Body temperature 98 [degF] No Primary Care Physician [facility] 02-03-2025 20:24-0400 Diastolic blood pressure 84 mm[Hg] No Primary Care Physician [facility] 02-03-2025 20:24-0400 Heart rate 71 /min No Primary Care Physician [facility] 02-03-2025 20:24-0400 Respiratory rate 14 /min No Primary Care Physician [facility] 02-03-2025 20:24-0400 SaO2% (BldA) [Mass fraction] 97 % No Primary Care Physician [facility] 02-03-2025 20:24-0400 Systolic blood pressure 112 mm[Hg] No Primary Care Physician [facility] 02-03-2025 19:10-0400 Body height 149.86 cm No Primary Care Physician [facility] 02-03-2025 19:10-0400 Body mass index (BMI) [Ratio] 22.8 kg/m2 No Primary Care Physician [facility] 02-03-2025 19:10-0400 Body weight 51.31 kg No Primary Care Physician [facility] 01-13-2025 06:34-0400 Body temperature 98.2 [degF] No Primary Care Physician [facility] 01-13-2025 06:34-0400 Diastolic blood pressure 70 mm[Hg] No Primary Care Physician [facility] 01-13-2025 06:34-0400 Heart rate 65 /min No Primary Care Physician [facility] 01-13-2025 06:34-0400 Respiratory rate 18 /min No Primary Care Physician [facility] 01-13-2025 06:34-0400 SaO2% (BldA) [Mass fraction] 98 % No Primary Care Physician [facility] 01-13-2025 06:34-0400 Systolic blood pressure 101 mm[Hg] No Primary Care Physician [facility] 01-13-2025 04:03-0400 Body height 149.86 cm No Primary Care Physician [facility] 01-13-2025 04:03-0400 Body mass index (BMI) [Ratio] 24.1 kg/m2 No Primary Care Physician [facility] 01-13-2025 04:03-0400 Body weight 54.2 kg No Primary Care Physician [facility] Encounters Encounter Date Encounter Type Care Provider Facility Start: 02-03-2025 End: 02-03-2025 Emergency department patient visit No Primary Care Physician -Emergency Department Work Phone: Start: 01-13-2025 End: 01-13-2025 Emergency department patient visit No Primary Care Physician -Emergency Department Work Phone: Start: 09-05-2024 End: 09-05-2024 Emergency department patient visit PRANEETH MATHEW Facility:[facility] Procedures Date Procedure Procedure Detail Performing Clinician Start: 01-13-2025 Urine culture No Primar y Care Physician Start: 01-13-2025 Urnls dip stick/tabl et reagent auto microscopy No Primary Care Physician Start: 01-13-2025 Estimated creatinine clearance No Primary Care Physician Plan of Treatment Date Care Activity Detail Author Start: 02-03-2025 [facility] Start: 01-13-2025 End: 01-13-2025 [facility] Patient Education ED Abscess Inc ision And Drainage [facility] Work Phone: Urine culture [facility] Payers Date Payer Category Payer Self-pay 2024 Unknown [id number] Unknown [id number] Unknown [id number] Unknown [id number] Social History Date Type Detail Facility Start: 01-13-2025 End: 02-03-2025 Tobacco smoking status NHIS Smokes tobacco daily (finding) [facility] Start: 2000 Sex Assigned At Female [facility] Discharge summary 01-13-2025 Note Date & Type Note Facility 01-13-2025 Discharge summary [facility] Discharge summary Note Date & Type Note Facility Discharge summary Note Date/Time January 13, 2025 6:31am [facility] Medical Records Department [address] [place] [address] Emergency Department Summary 01/13/25 MR#: [id number] Acct: [id number] Name: SIMONA STILL Rep #:[id number] : 2000 24 From: Carl Diop DO [...] is a low chance but still possibility. [facility] Medical History Asthma Home Medications ?Medication [...] follow commands knew that she was at [facility] 2024 Skin: Warm, dry, intact no rashes [...] % (Auto) 65.6 Lymph % (Auto) 27.0 [place] % (Auto) 5.8 Eos % (Auto) 0.9 [...] Clarity Clear Urine pH 6.0 Ur Specific [place] 1.025 Urine Protein 15 H Urine Glucose [...] go to the closest ER. Print Language: Tongan Disposition Disposition: Home, Self Care What to do if you have Problems For any increased pain, shortness of breath, bleeding, nausea or vomiting, chestpain, or any unexpected problems, contact your Primary Care Provider. Call [facility] ([phone]) or report to the closest Emergency Room. Call 911 if necessary. 01/13/25630 <Electronically signed by Carl Diop DO> Cosigner Signature (if applicable): CC: No Primary Care Physician ~ Signed [facility] Work Phone: Evaluation note Note Date & Type Note Facility Evaluation note No assessment information availa ble [facility] Work Phone: Hospital Discharge instructions Note Date [...] worsening symptoms go to the closest ER. [facility] Work Phone: Hospital Discharge instructions Note Date & Type Note Facility Hospital Discharge instructions Additional Instructions Please return for any other concerns, worsening symptoms, fevers, chills. Try to keep the area clean and dry. [facility] Work Phone: Reason for referral (narrative) Note Date & Type Note Facility Reason for referral (narrative) No reason for referral information available [facility] Work Phone: Chief Complaint and Reason for Visit Chief Complaint Admit Date hematuria January 13, 2025 4:02 am Chief Complaint Admit Date hematuria January 13, 2025 4:02 am wound February 03, 2025 7:0 8pm Advance Directives No Advanced Directives Records Found Advance Directive Response Recorded Date/ Time Do you have a Healthcare Power of Hospital Educator? No January 13, 2025 4:16am Advance Directive Response Recorded Date/ Time Do you have a Healthcare Power of Hospital Educator? No February 03, 2025 7:21pm Do you have a Healthcare Power of Hospital Educator? No January 13, 2025 4:16am Summary Purpose [...] January 13, 2025 End: January 13, 2025 Team Status: Active Member Role/Relationship Status Dates BOYD FLETCHER Primary Care Provider Active Team Status: Inactive Member Role/Relationship Status Dates No Primary Care Physician Primary Care Provider Active Start: January 13, 2025 End: January 13, 2025 Dr. Carl Diop , DO Attending Provider Active Start: January 13, 2025 End: January 13, 2025 Dr. Carl Diop , DO Emergency Provider Active Start: January 13, 2025 End: January 13, 2025 Team Status: Inactive Member Role/Relationship Status Dates Dr. Alejandro Donis MD Emergency Provider Active Sta rt: February 03, 2025 End: February 03, 2025 JUSTINE NIX Primary Care Provider Active Start: February 03, 2025 End: February 03, 2025 Goals (unrecognized section and content) Goals may be documented in a n alternate sectionGoals may be documented in an alternate section INFORMATION SOURCE (unrecogn ized section and content) DATE CREATED AUTHOR 02/08/2025 [facility] FOR RECORDS PERTAINING TO PATIENTS WHO [...] BE BASED ON THE PRIMARY CLINICAL RECORDS. [employer] provides no warranty or guarantee of the accuracy or completeness of information in this document.
== END 2025-02-09 18:46 | disposition home or self-care (01) ==
LOC: ED 18:29
PROVIDERS: Emergency Provider Surgery; Visit Provider Surgery
DX: N90.7 Vulvar cyst (principal); J45.909 Unspecified asthma, uncomplicated; F17.290 Nicotine dependence, other tobacco product, uncomplicated
CPT/HCPCS: 99282